=== PATIENT | female | born 1995 | race Hispanic/Latino ===

== ENCOUNTER 2020-09-23 21:11 | Emergency (ER) | payer OTHER ==
--- OUTSIDE RECORDS SUMMARY | 2020-09-23 21:16 | XMS REPORT | Continuity of Care Document ---
:1995 Author Organization [facility] t Address [address] [place] [address] Care Team Providers Name Role Phone Linda Attending Clinician Lab, Fam Pob I Attending Clinician Unavailable VISIT, BPF Attending Clinician Unavailable Swetha Sharif Attending Clinician Paul Van Attending Clinician Roxanne Gomez Attending Clinician Problems Condition Condition Condition Status Onset Resolution Last Treating Co mments Source Name Details Category Date Date Treatment Clinician Date G44.85 - Diagnosis Active 2019-052020-04-18 M emoria PRIMARY 2- 08:43:00 l STABBING G44.85 - 00:01: Herm elida HEADACHE PRIMARY 00 STABBING HEADACHE Active 04/04/2020 ASADD Aston N/A Diagnosis Active 2017-052018-03-13 Mem oria - 10:05:00 l N/A 00:00: Ismael 00 Active 03/10/2018 [facility] K80.1 Diagnosis Active 2017-052018-03-18 Mem oria CHOLEITHIA - 16:29:00 l SIS K80.1 00:00: [place] CHOLEITHIA 00 SIS Active 03/10/2018 [facility] R11.2 Diagnosis Active 2015-05-10 Mem oria -05 07:44:00 l R11.2 00:00: Ismael 00 Active 05/09/2015 [facility] [place] Hematemesi Problem 2014-052015-05-14 M emoria s 2-08 05:02:14 l (disorder) 00:00: Cristi n Hematemesi 00 s (disorder) 04/11/2015 Problem 05/14/2015 2x 1 episode [facility] Abnormal Problem 2018-10-04 Mem oria levels of 13:08:14 l other Abnormal Cristi n serum levels of enzymes other serum enzymes 10/04/2018 [facility] Gastritis, Problem 2018-10-04 M emoria unspecifie 13:08:14 l d, without Cristi n bleeding Gastritis, unspecifie d, without bleeding 10/04/2018 [facility] Gastro-eso Problem 2018-10-04 M emoria phageal 13:08:14 l reflux [place] disease Gastro-eso without phageal esophagiti reflux s disease without esophagiti s 10/04/2018 [facility] Essential Problem 2018-10-04 Me moria (primary) 13:08:14 l hypertensi Cristi n on Essential (primary) hypertensi on 10/04/2018 [facility] Unspecifie Problem 2018-10-04 M emoria d asthma, 13:08:14 l uncomplica Cristi n karla Unspecifie d asthma, uncomplica karla 10/04/2018 [facility] Anemia, Problem 2018-10-04 Thong olivier unspecifie 13:08:14 l d Anemia, Ismael unspecifie d 10/04/2018 [facility] Other long Problem 2018-10-04 M emoria term 13:08:14 l (current) Other Cristi n drug group home therapy (current) drug therapy 10/04/2018 [facility] Allergy Problem 2018-10-04 Thong olivier status to 13:08:14 l penicillin Allergy Her monzon status to penicillin 10/04/2018 [facility] Cardiac Problem 2015-05-14 Thong olivier asthma 05:02:14 l (disorder) Cardiac Her monzon asthma (disorder) Problem 05/14/2015 1no inhaler at this time [facility] Rectal Problem 2015-05-14 Memor ia hemorrhage 05:02:14 l (disorder) Rectal Herm elida hemorrhage (disorder) Problem 05/14/2015 [facility] Asthma Problem Active 2020-07-14 Memor ia (disorder) 02:13:22 l Asthma [place] (disorder) Active Problem 07/14/2020 no meds [facility] Eczema Problem Active 2020-07-14 Memor ia (disorder) 02:13:22 l Eczema Ismael (disorder) Active Problem 07/14/2020 Medical [facility], [facility] Gastroesop Problem Active 2020-07-14 M emoria hageal 02:13:22 l reflux Ismael disease Gastroesop (disorder) hageal reflux disease (disorder) Active Problem 07/14/2020 [facility], [facility] [place] Headache Problem Active 2020-07-14 Mem oria (finding) 02:13:22 l Headache Cristi n (finding) Active Problem 07/14/2020 Medical [facility], [facility] [place] Major Problem Active 2020-07-14 Memor ia depressive 02:13:22 l disorder Major [place] (disorder) depressive disorder (disorder) Active Problem 07/14/2020 Medical [facility] [place] Morbid Problem Active 2020-07-14 Memor ia obesity 02:13:22 l (disorder) Morbid Herm elida obesity (disorder) Active Problem 07/14/2020 [facility] [place] Chiari Problem Active 2020-07-14 Memor ia malformati 02:13:22 l on type I Chiari Yi nn (disorder) malformati on type I (disorder) Active Problem 07/14/2020 Medical [facility] Patient Problem Active 2020-07-14 Thong olivier encounter 02:13:22 l status Patient [place] (finding) encounter status (finding) Active Problem 07/14/2020 [facility] History of Past Illness Condition Condition Condition Status Onset Resolution Last Treating Co mments Source Name Details Category Date Date Treatment Clinician Date Calculus Problem 2017-052018-10-04 2018-10-04 Memoria of -17 13:08:14 13:08:14 l gallbladde Calculus 04:59: He rmann r with of 16 chronic gallbladde cholecysti r with tis chronic without cholecysti obstructio tis n without obstructio n 03/21/2018 10/04/2018 [facility] Allergies, Adverse Reactions, Alerts Allergy Allergy Status Severity Reaction(s) Onset Inactive Treating Comm ents Source Name Type Date Date Clinician penicill penicill Active Memori a in in l [place] Augmenti Augmenti Active Memori a n n l Ismael NKFA NKFA Active Memoria l [place] Latex Latex Active Memoria l Ismael amoxicil amoxicil Active Memori a tatiana Guevara Social History Social Habit Start Date Stop Date Quantity Comments Source Social History 2018-03-13 2018-03-13 [facility] 21:38:06 21:38:06 Medications Ordered Filled Start Stop Current Ordering Indication Dosage Frequency Signature Comments Components Source Medication Medication Date Date Medication? Clinician (SIG) Name Name Bromphenira 2020-0 Yes 5 mL, PO, M emoria mine 2-22 Q4H, PRN l Maleate 0.4 22:29: cough, X 8 [place] MG/ML / 00 day, # 240 Dextrometho mL, 0 rphan Refill(s), Hydrobromid Pharmacy: e 2 MG/ML / [facility] #[id number], Hydrochlori 149.86, de 6 MG/ML cm, Oral 06/15/20 Solution 16:09:00 CHEESEMAKER, Height, 97.756, kg, 06/15/20 16:09:00 CHEESEMAKER, Weight benzonatate Yes 200 mg = 1 Memoria 200 MG Oral 2-22 cap, PO, l Capsule 22:29: TID, X 7 Cristi n [Tessalon] 00 day, # 21 cap, 0 Refill(s), Pharmacy: [facility] #[id number], 149.86, cm, 06/15/20 16:09:00 CHEESEMAKER, Height, 97.756, kg, 06/15/20 16:09:00 CHEESEMAKER, Weight naproxen 0 Yes 500 mg = 1 Mem oria 500 mg oral 2-22 tab, PO, l tablet 22:29: BID, PRN [place] 00 Pain, # 30 tab, 0 Refill(s), Pharmacy: [facility] #[id number], 149.86, cm, 06/15/20 16:09:00 CHEESEMAKER, Height, 97.756, kg, 06/15/20 16:09:00 CHEESEMAKER, Weight promethazin 2019-05 Yes 12.5 mg = M emoria e 12.5 mg 1-10 1 tab, PO, l oral tablet 21:28: TID, PRN He rm 00 Nausea & Vomiting, # 90 tab, 2 Refill(s) Triamcinolo 2019-05 Yes 1 appl, Mem oria ne 1-10 TOP, BID, l Acetonide 1 21:26: PRN Apply H ermann MG/ML 00 to Topical affected Cream area(s), X 14 day, # 60 gm, 2 Refill(s) dexlansopra 2019-05 Yes 60 mg = 1 M emoria zole 60 mg 1-10 cap, PO, l oral 21:26: Daily, # Ismael delayed 00 30 cap, 5 release Refill(s) capsule promethazin 2019-05 No 12.5 mg = M emoria e 12.5 mg 1-10 1 tab, PO, l oral tablet 20:42: Q6H, PRN He rmann 00 Nausea & Vomiting, # 28 tab, 0 Refill(s) Phenergan 2017-05 No 12.5 mg, Thong olivier 05-17 Route: IM, l 16:08: ONCE, Dosing Weight 78, kg, Start date: 03/17/18 10:08:00 CHEESEMAKER, Stop date: 03/17/18 10:08:00 CHEESEMAKER Fentanyl 2017-05 No Notes: Memoria 05-17 (Same as: l 15:10: Sublimaze) Preservat judie free. Morphine 2017-05 No Notes: Memoria 05-17 (Same l 15:10: as:MORPhin e Sulfate) Flumazenil 2017-05 No Notes: Memor ia 05-17 (Same as: l 15:10: Romazicon) Ondansetron 2017-05 No Notes: Thong olivier -13 (Same as: l 15:10: Zofran) MEDICATION WASTE Product Size: 4 mg Product Wasted: ___ mg Naloxone 2017-05 No Notes: Memoria -13 (Same as: l 15:10: Narcan) Acetaminoph 2017-05 No Notes: Thong olivier en 325 MG / 05-17 (Same as: l Hydrocodone 14:55: Simon Yi nn Bitartrate 00 325/5) Do 5 MG Oral not exceed Tablet 4gm/day of acetaminop hen. Morphine 2017-05 No Notes: Memoria -13 (Same l 14:55: as:MORPhin e Sulfate) Phenergan 2017-05 No Notes: Memori a -13 (Same as: l 14:55: Phenergan) [place] 00 Zofran 2017-05 No Notes: Memoria -13 (Same as: l 14:55: Zofran) MEDICATION WASTE Product Size: 4 mg Product Wasted: ___ mg glycopyrrol 2017-05 No Route: IV, Memoria ate (ANES) 05-17 Drug form: l 14:55: INJ, ONCE, Stop date: 03/17/18 8:55:00 CHEESEMAKER neostigmine 2017-05 No Route: IV, Memoria (ANES) 05-17 Drug form: l 14:55: INJ, ONCE, Stop date: 03/17/18 8:55:00 CHEESEMAKER ceFAZolin 2017-05 No Route: IV, Me moria (ANES) - Drug form: l 14:53: INJ, ONCE, Stop date: 03/17/18 8:53:00 CHEESEMAKER midazolam 2017-05 No Route: IV, Me moria (ANES) - Drug form: l 14:48: SOLN, ONCE, Stop date: 03/17/18 8:48:00 CHEESEMAKER fentaNYL 2017-05 No Route: IV, Mem oria (ANES) 05-17 Drug form: l 14:48: INJ, ONCE, Stop date: 03/17/18 8:48:00 CHEESEMAKER lidocaine 2017-05 No Route: IV, Me moria (ANES) - Drug form: l 14:48: INJ, ONCE, Stop date: 03/17/18 8:48:00 CHEESEMAKER rocuronium 2017-05 No Route: IV, M emoria (ANES) - Drug form: l 14:48: INJ, ONCE, Stop date: 03/17/18 8:48:00 CHEESEMAKER propofol 2017-05 No Route: IV, Mem oria (ANES) 05-17 Drug form: l 14:48: INJ, ONCE, Stop date: 03/17/18 8:48:00 CHEESEMAKER ondansetron 2017-05 No Route: IV, Memoria (ANES) 05-17 Drug form: l 14:48: INJ, ONCE, [place] 00 Stop date: 03/17/18 8:48:00 CHEESEMAKER dexamethaso 2017-05 No Route: IV, Memoria ne (ANES) 05-17 Drug form: l 14:48: INJ, ONCE, Stop date: 03/17/18 8:48:00 CHEESEMAKER ketOROLAC 2017-05 No IV, ONCE Thong olivier (ANES) 05-17 l 14:48: [place] 00 Lactated 2017-05 No Route: IV, Mem oria Ringers 05-17 Total l Injection 13:58: Volume: Yi nn IV (ANES) 00 1,000, 1000 mL Start date: 03/17/18 7:58:00 CHEESEMAKER, Stop date: 03/17/18 8:58:00 CHEESEMAKER influenza 2017-05 No Notes: Memori a virus 05-13 (Same as: l vaccine, 21:44: Fluzone Cristi n inactivated 51 Quadrivale nt, Fluarix Quadrivale nt) For 3 years of age and older (0.5 mL IM) Shake well before use Misc No Bienvenido 213.33 mL, Memori a Medication 05-12 Devang Soln-IV, l 14:13: IV, Once, Ismael first dose 05/12/15 8:13:00 CHEESEMAKER, stop date 05/12/15 8:13:00 CHEESEMAKER propofol No Bienvenido 40 mg = 4 Mem oria 05-12 Devang mL, l 14:04: Emulsion, [place] 00 IV, Once, first dose 05/12/15 8:04:00 CHEESEMAKER, stop date 05/12/15 8:04:00 CHEESEMAKER propofol No Bienvenido 60 mg = 6 Mem oria -08 Devang mL, l 14:00: Emulsion, [place] 00 IV, Once, first dose 05/12/15 8:00:00 CHEESEMAKER, stop date 05/12/15 8:00:00 CHEESEMAKER propofol No Bienvenido 60 mg = 6 Mem oria - Devang mL, l 13:56: Emulsion, [place] 00 IV, Once, first dose 05/12/15 7:56:00 CHEESEMAKER, stop date 05/12/15 7:56:00 CHEESEMAKER propofol No Bienvenido 60 mg = 6 Mem oria -08 Devang mL, l 13:52: Emulsion, [place] 00 IV, Once, first dose 05/12/15 7:52:00 CHEESEMAKER, stop date 05/12/15 7:52:00 CHEESEMAKER propofol No Bienvenido 160 mg = Thong olivier - Devang 16 mL, l 13:48: Emulsion, Ismael 00 IV, Once, first dose 05/12/15 7:48:00 CHEESEMAKER, stop date 05/12/15 7:48:00 CHEESEMAKER lidocaine No Bienvenido 3 mL, Memori a - Devang Injection, l 13:47: IV, Once, [place] 00 first dose 05/12/15 7:47:00 CHEESEMAKER, stop date 05/12/15 7:47:00 CHEESEMAKER LR 1,000 mL No Jose Luis 1,000 mL, Memoria 08 Gomez IV, 30 l 13:11: mL/hr, [place] 00 start date 05/12/15 7:11:00 CHEESEMAKER Lidocaine No Jose Luis 0.2 mL, Me moria 2% 0.2 mL 05-12 Gomez Injection, l IV Start 13:11: Subcutaneo Her monzon [[facility]] 00 us, Once PRN for other (see comment), first dose 05/12/15 7:11:00 CHEESEMAKER Ortho Yes tabs, Memoria Tri-Cyclen 1-07 Oral, l 18:00: Daily, 0 Ismael 00 Refill(s), control Dexilant 60 Yes 60 mg = 1 M emoria mg oral 1-07 caps, l delayed 17:59: Oral, Ismael release 00 Daily, # capsule 30 caps, 0 Refill(s), GERD Vital Signs Vital Name Observation Time Observation Value Comments Source Systolic (mm Hg) 2020-07-11 21:32:00 Thong rial [place] Diastolic (mm Hg) 2020-07-11 21:32:00 Mem orial [place] Heart Rate 2020-07-11 21:32:00 [facility] Height 2020-07-11 21:32:00 149.86 cm Memorial [place] Weight 2020-07-11 21:32:00 [facility] Ismael BMI Calculated 2020-07-11 21:32:00 Memori al [place] Systolic (mm Hg) 2020-06-15 21:09:00 Thong rial [place] Diastolic (mm Hg) 2020-06-15 21:09:00 Mem orial [place] Heart Rate 2020-06-15 21:09:00 [facility] Ismeal Height 2020-06-15 21:09:00 149.86 cm Memorial [place] Weight 2020-06-15 21:09:00 Memorial [place] BMI Calculated 2020-06-15 21:09:00 Memori al [place] Systolic (mm Hg) 2020-06-13 21:30:00 Thong rial [place] Diastolic (mm Hg) 2020-06-13 21:30:00 Mem orial Ismael Height 2020-06-13 21:30:00 149.86 cm Memorial Ismael Weight 2020-06-13 21:30:00 Memorial [place] BMI Calculated 2020-06-13 21:30:00 Memori al [place] Systolic (mm Hg) 2020-03-14 20:40:00 Thong rial [place] Diastolic (mm Hg) 2020-03-14 20:40:00 Mem orial Ismael Heart Rate 2020-03-14 20:40:00 Memorial [place] Height 2020-03-14 20:40:00 149.86 cm Memorial Ismael Weight 2020-03-14 20:40:00 Memorial [place] BMI Calculated 2020-03-14 20:40:00 Memori al [place] Respitory Rate 2018-03-17 16:45:00 Memori al [place] Systolic (mm Hg) 2018-03-17 16:45:00 Thong rial [place] Diastolic (mm Hg) 2018-03-17 16:45:00 Mem orial [place] Respitory Rate 2018-03-17 16:15:00 Memori al [place] Systolic (mm Hg) 2018-03-17 16:15:00 Thong rial Ismael Diastolic (mm Hg) 2018-03-17 16:15:00 Mem orial [place] Respitory Rate 2018-03-17 16:00:00 Memori al [place] Systolic (mm Hg) 2018-03-17 16:00:00 Thong rial [place] Diastolic (mm Hg) 2018-03-17 16:00:00 Mem orial Ismael Temperature Oral (F) 2018-03-17 12:00:00 98.5 F Memorial Ismael Heart Rate 2018-03-13 21:33:00 [facility] Ismael BMI Calculated 2018-03-13 21:26:00 Memori al Ismael Weight 2018-03-13 21:26:00 Memorial [place] Height 2018-03-13 21:26:00 149.86 cm Memorial [place] Systolic (mm Hg) 2015-05-12 14:45:00 Thong rial [place] Respitory Rate 2015-05-12 14:45:00 Memori al [place] Systolic (mm Hg) 2015-05-12 14:20:00 Thong rial [place] Respitory Rate 2015-05-12 14:20:00 Memori al [place] Heart Rate 2015-05-12 14:20:00 [facility] Ismael Heart Rate 2015-05-12 14:10:00 [facility] Ismael Respitory Rate 2015-05-12 14:10:00 Memori al Ismael Systolic (mm Hg) 2015-05-12 14:10:00 Thong rial Ismael Temperature Oral (F) 2015-05-12 14:00:00 36.6 [facility] Ismael Heart Rate 2015-05-12 14:00:00 Memorial [place] Height 2015-05-12 13:33:00 149.86 cm [facility] Ismael Weight 2015-05-12 13:33:00 [facility] Ismael Temperature Oral (F) 2015-05-12 13:33:00 37 [facility] Ismael Height 2015-05-11 17:57:00 149 cm Memorial [place] Weight 2015-05-11 17:57:00 [facility] Ismael Procedures Procedure Date / Time Performing Source Performed Clinician COLONOSCOPY FLEXIBLE; DIAGNOSTIC; 2015-05-12 Jose Luis Gomez [facility] Ismael INCL. COLLECTION OF SPECIMENS 13:49:00 [id number] (Other)<sup>1</sup> ESOPHAGOGASTRODUODENOSCOPY; 2015-05-12 Jose Luis Gomez Thong rial Ismael FLEXIBLE DIAGNOSTIC [id number] 13:49:00 (Other)<sup>2</sup> Esophagogastroduodenoscopy 2014-05-09 Memor ial Ismael 06:00:00 section<sup>1</sup> Mem orial [place] Encounters Start End Encounter Admission Attending Care Care Encounter Source Date/Time Date/Time Type Type Clinicians Facility Department ID 2020-07-11 2020-07-11 Outpatient Leidy-Will [facility] [id number] 15:30:00 23:59:59 Josefa wall 04 2020-07-08 2020-07-08 Laboratory Lab, [facility] [id number] 12:58:17 13:18:17 Only Fam Pob I Health [id number] [place] [id number] Professio [id number] nal [address] 2020-06-26 2020-06-26 Outpatient Leidy-Will [facility] [id number] 16:00:00 23:59:59 Josefa wall 2020-06-24 2020-06-24 Laboratory Lab, [facility] [id number] 17:36:34 17:56:34 Only Fam Pob I Health [id number] [place] [id number] Professio [id number] nal [address] 2020-06-15 2020-06-15 Outpatient VISIT, [facility] [id number] 15:00:00 23:59:59 NURSE BPF 03 2020-06-13 2020-06-14 Outpatient [facility] [id number] 13:54:38 13:54:38 00 2020-06-13 2020-06-13 Outpatient Leidy-Will [facility] [id number] 15:00:00 23:59:59 Josefa wall 2020-04-18 2020-04-18 Outpatient Kole, MHOIP MHOIP [id number] 08:33:00 23:59:00 January Posada 2020-03-14 2020-03-14 Outpatient Leidy-Will [facility] [id number] 14:30:00 23:59:59 [facility] Josefa 00 2018-03-17 2018-03-17 Outpatient Bermudez terrance [facility] [id number] 05:18:00 12:05:00 Supa Bartlett 2016-09-27 2016-09-27 Outpatient AWILDA Gomez MH29 [id number] 14:34:00 23:59:00 Jose Luis H 00 2015-05-12 2015-05-12 Outpatient Mason Cervantes66 Memoria 06:35:49 08:45:00 [place] Ismael l Surgical [facility] [place] [facility] [place] 2015-05-10 2015-05-10 Outpatient TIAN GomezSL [facility] [id number] 07:35:00 23:59:00 Jose Luis H 00 Results Test Description Test Time Test Comments Results Result Comments Source LIPIDS 2020-07-11 183 [facility] Yi nn 22:24:00 LIPIDS 2020-07-11 58 Memorial Yi nn 22:24:00 LIPIDS 2020-07-11 143 Memorial Yi nn 22:24:00 LIPIDS 2020-07-11 101 Memorial Yi nn 22:24:00 LIPIDS 2020-07-11 3.2 Memorial Yi nn 22:24:00 LIPIDS 2020-07-11 125 Memorial Yi nn 22:24:00 SPECIAL CHEMISTRY 2020-07-11 5.4 Memoria l Ismael 22:24:00 CHEM PANEL 2020-07-11 80 Memorial Yi nn 22:24:00 CHEM PANEL 2020-07-11 14 Memorial Yi nn 22:24:00 CHEM PANEL 2020-07-11 0.70 Memorial Yi nn 22:24:00 CHEM PANEL 2020-07-11 120 Memorial Yi nn 22:24:00 CHEM PANEL 2020-07-11 140 Memorial Yi nn 22:24:00 CHEM PANEL 2020-07-11 139 Memorial Yi nn 22:24:00 CHEM PANEL 2020-07-11 4.0 Memorial Yi nn 22:24:00 CHEM PANEL 2020-07-11 105 Memorial Yi nn 22:24:00 CHEM PANEL 2020-07-11 27 Memorial Yi nn 22:24:00 CHEM PANEL 2020-07-11 9.4 Memorial Yi nn 22:24:00 CHEM PANEL 2020-07-11 7.2 Memorial Yi nn 22:24:00 CHEM PANEL 2020-07-11 4.3 Memorial Yi nn 22:24:00 CHEM PANEL 2020-07-11 2.9 Memorial Yi nn 22:24:00 CHEM PANEL 2020-07-11 1.5 Memorial Yi nn 22:24:00 CHEM PANEL 2020-07-11 0.3 Memorial Yi nn 22:24:00 CHEM PANEL 2020-07-11 102 Memorial Yi nn 22:24:00 CHEM PANEL 2020-07-11 19 Memorial Yi nn 22:24:00 CHEM PANEL 2020-07-11 21 Memorial Yi nn 22:24:00 HEMATOLOGY 2020-07-11 5.8 Memorial Yi nn 22:24:00 HEMATOLOGY 2020-07-11 4.42 Memorial Yi nn 22:24:00 HEMATOLOGY 2020-07-11 12.4 Memorial Yi nn 22:24:00 HEMATOLOGY 2020-07-11 38.0 Memorial Yi nn 22:24:00 HEMATOLOGY 2020-07-11 86.0 Memorial Yi nn 22:24:00 HEMATOLOGY 2020-07-11 22:24:00 Test Item Value Reference Range Interpretation Comme nts MCH (test code = MCH) 28.1 pg 27.0-33.0 Memorial Z[id number] 22:24:0032.6[facility]ann[facility]MATOLOGY 2020-07-11 22:24:0012.9[facility] UliyrfxYEEZNLMRCG9081-28-02 22:24:62256Hsdnrhxz MhotqmyMLMYHQCIDM7603-35-91 22:24:0010.0[facility] MmmnmhzNSOEVBKXHS5290-92-38 22:24:919304Mosldfjd RufiaojHPDAEUMNCZ2978-82-55 22:24:027785Icnkvlwp Ismael EWVDVRBWYB2626-97-66 22:24:18244Blefwggt AqnehsxIVOLQFAELT5595-83-52 22:24:0052 Memorial LudodboITANZBARSR3522-23-67 22:24:0029[facility]ann[facility]MATOLOGY 2020-07-11 22:24:0057.2[facility] EcpxiehXBGRDAHTBK1044-82-32 22:24:0030.1[facility] JpwdyxmVIPDWEPXYW7233-64-75 22:24:0011.3[facility] JlzodiyELRRWEMCBZ3963-75-77 22:24:000.9[facility] FswyaenNHKUQOHJOY1776-03-86 22:24:000.5[facility] [place] BKFKBYANMN2956-88-61 21:14:41873.80[facility] HermannCHEM ZQNXV4485-80-63 21:33:00 95[facility] KpczihtPBTSUNNVAAPIM8141-94-56 21:33:00Negative *NA*(03/13/18 3:33 PM) Memorial TlsrvxxTXMDGXOQAH5258-09-20 21:33:000.0[facility] HermannHEMATOLOGY 2018-03-13 21:33:001.9[facility] UzzmyorGSSTJIULXI9237-60-39 21:33:004.4[facility] IhpmoqyWHKWISVUJE6493-30-65 21:33:000.5[facility] VofzvqwOVLBMYKLTS5573-82-50 21:33:000.0[facility] DedgworCHQJYPAHIN8524-36-32 21:33:000.5[facility] [place] XFGCHCLGLJ9171-50-33 21:33:006.7[facility] AtdnzvfNLQAGKFFDK3211-01-95 21:33:00 27.9[facility] AoxqficZGUUGFWKDO9938-21-08 21:33:0064.4[facility]annHEMATOLOGY 2018-03-13 21:33:000.5[facility] RetfcuzWINNYQFNZZ4727-64-95 21:33:004.10[facility] IitesulYOZRTUBKCT0155-89-90 21:33:0034.0[facility] GovijdiEJWTZVXIMJ3405-93-20 21:33:0011.0[facility] OlfryfcKCQOZMRQLA9896-84-43 21:33:0017.3[facility] Ismael IZPZUSMSUC3623-14-16 21:33:43455Wlarmupp RvitpqrBDUXFIPGVN6729-60-93 21:33:007.7 Memorial DofhimaTIWBOFHZSG6759-02-31 21:33:0082.8[facility]ann[facility]MATOLOGY 2018-03-13 21:33:0032.3[facility] WqnfpfjGVESZUKBQR7273-41-62 21:33:00 Test Item Value Reference Range Interpretation Comments MCH (test code = MCH) 26.7 pg 27.0-31.0 [facility] 21:33:006.9[facility] 2015-05-12 13:37:00Negative, Control Present (05/12/2015 07:37:00)[facility]
--- NOTE | 2020-09-23 22:52 | EDPHYS ---
Physician Documentation [facility] Name: Maggie Bowles Age: 24 yrs Sex: Female : 1995 Arrival Date: 09/23/2020 Time: 21:12 Bed 13 Private MD: ED Physician Ralph Arthur HPI: 09/23 21:40 This 24 yrs old Female presents to ER via Ambulatory with complaints of Sore cp Throat, Neck Swelling, Body Pain. 21:40 The patient presents with sore throat. cp 21:40 The patient describes throat pain as constant, scratchy. cp 21:40 Onset: The symptoms/episode began/occurred 3 day(s) ago. Severity of symptoms: in the emergency department the symptoms are unchanged, despite home interventions. Associated signs and symptoms: Pertinent positives: body aches, Pertinent negatives cough, diarrhea, dysphagia, fever, vomiting. 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 - Social history:: Smoking status: Patient denies any tobacco usage or history of. ROS: 21:45 Constitutional: Positive for body aches, Negative for chills, fever, poor PO intake. cp 21:45 Eyes: Negative for injury, pain, redness, and discharge. cp 21:45 ENT: Positive for ear pain, sore throat, Negative for drainage from ear(s), sinus pain, difficulty swallowing, difficulty handling secretions. 21:45 Cardiovascular: Negative for chest pain. 21:45 Respiratory: Negative for cough, shortness of breath, wheezing. 21:45 Abdomen/GI: Negative for abdominal pain, nausea, vomiting, and diarrhea. 21:45 Neuro: Negative for headache. 21:45 All other systems are negative. Exam: 21:50 Constitutional: The patient appears in no acute distress, alert, awake, non-toxic, well cp developed, well nourished. 21:50 Head/Face: Normocephalic, atraumatic. cp 21:50 Eyes: Periorbital structures: appear normal, Conjunctiva: normal, no exudate, no injection, Sclera: no appreciated abnormality, Lids and lashes: appear normal, bilaterally. 21:50 ENT: External ear(s): are unremarkable, Ear canal(s): are normal, clear, TM's: bulging, is not appreciated, bilaterally, dullness, bilaterally, erythema, is not appreciated, bilaterally, Nose: is normal, Mouth: Lips: moist, Oral mucosa: moist, Posterior pharynx: Airway: no evidence of obstruction, patent, Tonsils: bilaterally enlarged, with erythema, Uvula: midline, erythema, that is moderate, exudate, is not appreciated. 21:50 Neck: ROM/movement: is normal, is supple, no meningismus, no nuchal rigidity, Lymph nodes: lymphadenopathy is appreciated, anterior cervical nodes. 21:50 Chest/axilla: Inspection: normal. 21:50 Cardiovascular: Rate: tachycardic. 21:50 Respiratory: the patient does not display signs of respiratory distress, Respirations: normal, no use of accessory muscles, no retractions, labored breathing, is not present. Vital Signs: 21:20 BP 137 / 93; Pulse 118; Resp 20; Temp 98.4; Pulse Ox 99% ; Weight 97.98 kg; Height 4 vg1 ft. 11 in. (149.86 cm); Pain 6/10; 23:00 BP 128 / 88; Pulse 98; Resp 18; Pulse Ox 98% on R/A; wh 21:20 Body Mass Index 43.63 (97.98 kg, 149.86 cm) vg1 MDM: 21:57 Patient medically screened. cp 22:00 Differential diagnosis: epiglottitis, group A strep tonsillitis, peritonsillar abscess cp retropharyngeal abcess tonsillitis, uvulitis. 22:51 Data reviewed: vital signs, nurses notes, lab test result(s). cp 22:51 Counseling: I had a detailed discussion with the patient and/or guardian regarding: the cp historical points, exam findings, and any diagnostic results supporting the discharge/admit diagnosis, lab results, to return to the emergency department if symptoms worsen or persist or if there are any questions or concerns that arise at home. 09/23 21:34 Order name: Strep vg1 09/23 21:35 Order name: Group A Streptococcus Rapid Sc EDMS 09/23 22:00 Order name: Throat Culture EDMS Administered Medications: 23:05 Drug: Viscous Lidocaine Liquid (4 %) 5 ml Route: Mucous Membrane; wh 23:16 Follow up: Response: No adverse reaction; Pain is decreased Disposition: 09/24 07:21 Co-signature as Attending Physician, Ralph Arthur MD. [email or web address] Disposition: 09/23/20 22:52 Discharged to Home. Impression: Acute tonsillitis. - Condition is Stable. - Discharge Instructions: Tonsillitis. - Prescriptions for lidocaine HCl 2 % Mucous Membrane solution - take 5 milliliter by ORAL route every 4-6 hours As needed; 1 bottle. Biaxin 500 mg Oral Tablet - take 1 tablet by ORAL route every 12 hours for 10 days; 20 tablet. - Medication Reconciliation Form, Thank You Letter, Antibiotic Education, Prescription Opioid Use, Work release form, Family Work Release form. - Follow up: Private Physician; When: 1 - 2 days; Reason: Worsening of condition. - Problem is new. - Symptoms have improved. Signatures: Dispatcher [employer] EDPA Chicho Harrison PA PA cp Habalo, Winsy, RN RN Dior Brooks RN RN vg1 Ralph Arthur MD MD [email or web address] Corrections: (The following items were deleted from the chart) 09/23 23:19 22:52 09/23/2020 22:52 Discharged to Home. Impression: Acute tonsillitis. Condition is Stable. Forms are Medication Reconciliation Form, Thank You Letter, Antibiotic Education, Prescription Opioid Use. Follow up: Private Physician; When: 1 - 2 days; Reason: Worsening of condition. Problem is new. Symptoms have improved. cp
--- NOTE | 2020-09-23 22:52 | ER ---
Nurse's Notes [facility] Name: Maggie Bowles Age: 24 yrs Sex: Female : 1995 Arrival Date: 09/23/2020 Time: 21:12 Bed 13 Private MD: Diagnosis: Acute tonsillitis Presentation: 09/23 21:20 Chief complaint: Patient states: C/o body aches, sore throat, and right ear pain for vg1 about 2-3 days. Coronavirus screen: Client denies travel out of the [place] in the last 14 days. Ebola Screen: Patient negative for fever greater than or equal to 101.5 degrees Fahrenheit, and additional compatible Ebola Virus Disease symptoms. Initial Sepsis Screen: Does the patient meet any 2 criteria? No. Patient's initial sepsis screen is negative. Does the patient have a suspected source of infection? No. Patient's initial sepsis screen is negative. Risk Assessment: Do you want to hurt yourself or someone else? Patient reports no desire to harm self or others. Onset of symptoms was September 20, 2020. 21:20 Method Of Arrival: Ambulatory vg1 21:20 Acuity: VENKATA 3 vg1 Triage Assessment: 21:25 General: Appears in no apparent distress. comfortable, Behavior is calm, cooperative. vg1 Pain: Complains of pain in generalized body aches and throat. EENT: Throat is reddened. 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 - Social history:: Smoking status: Patient denies any tobacco usage or history of. Screenin:00 Abuse screen: Denies threats or abuse. Denies injuries from another. Nutritional wh screening: No deficits noted. Tuberculosis screening: No symptoms or risk factors identified. Fall Risk None identified. Assessment: 21:34 Reassessment: Pt being treated in triage. vg1 22:00 General: Appears in no apparent distress. Behavior is calm, cooperative, appropriate wh for age. Pain: Complains of pain in sore throat. Neuro: Level of Consciousness is awake, alert, obeys commands, Oriented to person, place, time, situation, Appropriate for age. Cardiovascular: Heart tones S1 S2. Respiratory: Airway is patent Respiratory effort is even, unlabored, Respiratory pattern is regular, symmetrical, Breath sounds are clear bilaterally. GI: Abdomen is flat, non-distended. : No signs and/or symptoms were reported regarding the genitourinary system. EENT: Throat is pink. Derm: Skin is intact, is healthy with good turgor, Skin is pink, warm \T\ dry. normal. Musculoskeletal: Circulation, motion, and sensation intact. 23:00 Reassessment: Patient appears in no apparent distress at this time. No changes from previously documented assessment. Patient and/or family updated on plan of care and expected duration. Pain level reassessed. Patient is alert, oriented x 3, equal unlabored respirations, skin warm/dry/pink. Vital Signs: 21:20 BP 137 / 93; Pulse 118; Resp 20; Temp 98.4; Pulse Ox 99% ; Weight 97.98 kg; Height 4 vg1 ft. 11 in. (149.86 cm); Pain 6/10; 23:00 BP 128 / 88; Pulse 98; Resp 18; Pulse Ox 98% on R/A; wh 21:20 Body Mass Index 43.63 (97.98 kg, 149.86 cm) vg1 ED Course: 21:12 Patient arrived in ED. cf2 21:23 Triage completed. vg1 21:25 Arm band placed on. vg1 21:31 Chicho Harrison PA is PHCP. cp 21:31 Ralph Arthur MD is Attending Physician. cp 21:36 Strep swab sent to lab. vg1 22:00 Patient has correct armband on for positive identification. Bed in low position. Call light in reach. Side rails up X 1. Pulse ox on. NIBP on. 22:52 Mazin Miranda, ROLF is Primary Nurse. 23:19 No provider procedures requiring assistance completed. Patient did not have IV access during this emergency room visit. Administered Medications: 23:05 Drug: Viscous Lidocaine Liquid (4 %) 5 ml Route: Mucous Membrane; 23:16 Follow up: Response: No adverse reaction; Pain is decreased Outcome: 22:52 Discharge ordered by . cp 23:19 Discharged to home ambulatory. 23:19 Condition: stable 23:19 Discharge instructions given to patient, Instructed on discharge instructions, follow up and referral plans. medication usage, POC Demonstrated understanding of instructions, follow-up care, medications, POC Prescriptions given X 2. 23:19 Patient left the ED. Signatures: Chicho Harrison PA PA cp Habalo, Winsy, RN RN David Márquez 2 Dior Brooks RN RN vg1
[2020-09-23] MEDS ORDERED: LIDOCAINE VISCOUS 2% SOLN 15 ML UDC ONE (23:31)
[2020-09-23 23:39] VITALS: TEMP 98.4
[2020-09-23 23:40] VITALS: BP 128/88; O2SAT 98
== END 2020-09-23 23:19 | disposition home or self-care (01) ==
LOC: ER 21:11
DX: J03.90 Acute tonsillitis, unspecified (principal)
CPT/HCPCS: 87070; 87081; 99284

== ENCOUNTER 2020-12-06 04:31 | Emergency (ER) | payer OTHER ==
--- OUTSIDE RECORDS SUMMARY | 2020-12-06 04:34 | XMS REPORT | Continuity of Care Document ---
:1995 Author Organization [facility] t Address [address] [place] [address] Care Team Providers Name Role Phone Linda [...] Mem oria - 10:05:00 l N/A 00:00: [place] 00 Active 03/10/2018 [facility] K80.1 Diagnosis Active 2017-052018-03-18 Mem oria CHOLEITHIA - 16:29:00 l SIS K80.1 00:00: [place] CHOLEITHIA 00 SIS Active 03/10/2018 [facility] R11.2 Diagnosis Active 2015-05-10 Mem oria -05 07:44:00 l R11.2 00:00: [place] 00 Active 05/09/2015 [facility] [place] Hematemesi Problem 2014-052015-05-14 M emoria s 2-08 05:02:14 l (disorder) 00:00: Cristi n Hematemesi 00 s (disorder) 04/11/2015 Problem 05/14/2015 2x 1 episode [facility] Abnormal Problem 2018-10-04 Mem oria levels of 13:08:14 l other Abnormal Cristi n serum levels of enzymes other serum enzymes 10/04/2018 [facility] Gastritis, Problem 2018-10-04 M emoria unspecifie 13:08:14 l d, without Cristi n bleeding Gastritis, unspecifie d, without bleeding 10/04/2018 [facility] Gastro-eso Problem 2018-10-04 M emoria phageal 13:08:14 l reflux Alma disease Gastro-eso without phageal esophagiti reflux s disease without esophagiti s 10/04/2018 [facility] Essential Problem 2018-10-04 Me moria (primary) 13:08:14 l hypertensi Cristi n on Essential (primary) hypertensi on 10/04/2018 [facility] Unspecifie Problem 2018-10-04 M emoria d asthma, 13:08:14 l uncomplica Cristi n karla Unspecifie d asthma, uncomplica karla 10/04/2018 [facility] Anemia, Problem 2018-10-04 Thong olivier unspecifie 13:08:14 l d Anemia, [place] unspecifie d 10/04/2018 [facility] Other long Problem 2018-10-04 M emoria term 13:08:14 l (current) Other Cristi n drug senior care therapy (current) drug therapy 10/04/2018 [facility] Allergy Problem 2018-10-04 Thong olivier status to 13:08:14 l penicillin Allergy Her monzon status to penicillin 10/04/2018 [facility] Cardiac Problem 2015-05-14 Thong olivier asthma 05:02:14 l (disorder) Cardiac Her monzon asthma (disorder) Problem 05/14/2015 1no inhaler at this time [facility] Rectal Problem 2015-05-14 Memor ia hemorrhage 05:02:14 l (disorder) Rectal Herm elida hemorrhage (disorder) Problem 05/14/2015 [facility] Asthma Problem Active 2020-07-14 Memor ia (disorder) 02:13:22 l Asthma Ismael (disorder) Active Problem 07/14/2020 no [facility]s [facility] Eczema Problem Active 2020-07-14 Memor ia (disorder) 02:13:22 l Eczema [place] (disorder) Active Problem 07/14/2020 [facility], [facility] Gastroesop Problem Active 2020-07-14 M emoria hageal 02:13:22 l reflux Ismael disease Gastroesop (disorder) hageal reflux disease (disorder) Active Problem 07/14/2020 [facility] Headache Problem Active 2020-07-14 Mem oria (finding) 02:13:22 l Headache Cristi n (finding) Active Problem 07/14/2020 [facility], [facility] Major Problem Active 2020-07-14 Memor ia depressive 02:13:22 l disorder Major [place] (disorder) depressive disorder (disorder) Active Problem 07/14/2020 [facility] Morbid Problem Active 2020-07-14 Memor ia obesity 02:13:22 l (disorder) Morbid Herm elida obesity (disorder) Active Problem 07/14/2020 [facility] [place] Chiari Problem Active 2020-07-14 Memor ia malformati 02:13:22 l on type I Chiari Yi nn (disorder) malformati on type I (disorder) Active Problem 07/14/2020 [facility] Patient Problem Active 2020-07-14 Thong olivier encounter 02:13:22 l status Patient Ismael (finding) encounter status (finding) Active Problem 07/14/2020 [facility] History of Past Illness Condition Condition Condition Status Onset Resolution Last Treating Co mments Source Name Details Category Date Date Treatment Clinician Date Calculus Problem 2017-052018-10-04 2018-10-04 Memoria of -17 13:08:14 13:08:14 l gallbladde Calculus 04:59: He rmann r with of 16 chronic gallbladde cholecysti r with tis chronic without cholecysti obstructio tis n without obstructio n 03/21/2018 10/04/2018 [facility] Allergies, Adverse Reactions, Alerts Allergy Allergy Status Severity Reaction(s) Onset Inactive Treating Comm ents Source Name Type Date Date Clinician penicill penicill Active Memori a in in l Ismael Augmenti Augmenti Active Memori a n n l [place] Latex Latex Active Memoria l Ismael amoxicil amoxicil Active Memori a tatiana tatiana l Ismael Social History Social Habit Start Date Stop Date Quantity Comments Source Social History 2018-03-13 2018-03-13 [facility] 21:38:06 21:38:06 Medications Ordered Filled Start Stop Current Ordering Indication Dosage Frequency Signature Comments Components Source Medication Medication Date Date Medication? Clinician (SIG) Name Name Heather 0 Yes 5 mL, PO, M emoria mine 2-22 Q4H, PRN l Maleate 0.4 22:29: cough, X 8 [place] MG/ML / 00 day, # 240 Dextrometho mL, 0 rphan Refill(s), Hydrobromid Pharmacy: e 2 MG/ML / [id number], Hydrochlori 149.86, de 6 MG/ML cm, Oral 06/15/20 Solution 16:09:00 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, Height, 97.756, kg, 06/15/20 16:09:00 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, Weight benzonatate Yes 200 mg = 1 Memoria 200 MG Oral 2-22 cap, PO, l Capsule 22:29: TID, X 7 Cristi n [Tessalon] 00 day, # 21 cap, 0 Refill(s), Pharmacy: [facility] #[id number], 149.86, cm, 06/15/20 16:09:00 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, Height, 97.756, kg, 06/15/20 16:09:00 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, Weight naproxen 0 Yes 500 mg = 1 Mem oria 500 mg oral 2-22 tab, PO, l tablet 22:29: BID, PRN Al[place] 00 Pain, # 30 tab, 0 Refill(s), Pharmacy: [facility] #[id number], 149.86, cm, 06/15/20 16:09:00 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, Height, 97.756, kg, 06/15/20 16:09:00 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, Weight promethazin 2019- Yes 12.5 mg = M emoria e 12.5 mg 1-10 1 tab, PO, l oral tablet 21:28: TID, PRN He rmann 00 Nausea & Vomiting, # 90 tab, 2 Refill(s) Triamcinolo 2019-05 Yes 1 appl, Mem oria ne 1-10 TOP, BID, l Acetonide 1 21:26: PRN Apply H ermann MG/ML 00 to Topical affected Cream area(s), X 14 day, # 60 gm, 2 Refill(s) dexlansopra 2019-05 Yes 60 mg = 1 M emoria zole 60 mg 1-10 cap, PO, l oral 21:26: Daily, # Alma delayed 00 30 cap, 5 release Refill(s) capsule promethazin 2019-05 No 12.5 mg = M emoria e 12.5 mg 1-10 1 tab, PO, l oral tablet 20:42: Q6H, PRN He rm 00 Nausea & Vomiting, # 28 tab, 0 Refill(s) Phenergan 2017-05 No 12.5 mg, Thong olivier 05-17 Route: IM, l 16:08: ONCE, Dosing Weight 78, kg, Start date: 03/17/18 10:08:00 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, Stop date: 03/17/18 10:08:00 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 Fentanyl 2017-05 No Notes: Memoria - (Same as: l 15:10: Sublimaze) Preservat judie free. Morphine 2017-05 No Notes: Memoria - (Same l 15:10: as:MORPhin e Sulfate) Flumazenil 2017-05 No Notes: Memor ia - (Same as: l 15:10: Romazicon) Ondansetron 2017-05 No Notes: Thong olivier - (Same as: l 15:10: Zofran) MEDICATION WASTE Product Size: 4 mg Product Wasted: ___ mg Naloxone 2017-05 No Notes: Memoria -13 (Same as: l 15:10: Narcan) Acetaminoph 2017-05 No Notes: Thong olivier en 325 MG / 05-17 (Same as: l Hydrocodone 14:55: [place] Yi nn Bitartrate 00 325/5) Do 5 MG Oral not exceed Tablet 4gm/day of acetaminop hen. Morphine 2017-05 No Notes: Memoria -13 (Same l 14:55: as:MORPhin e Sulfate) Phenergan 2017-05 No Notes: Memori a -13 (Same as: l 14:55: Phenergan) Ismael 00 Zofran 2017-05 No Notes: Memoria -13 (Same as: l 14:55: Zofran) MEDICATION WASTE Product Size: 4 mg Product Wasted: ___ mg glycopyrrol 2017-05 No Route: IV, Memoria ate (ANES) 05-17 Drug form: l 14:55: INJ, ONCE, Stop date: 03/17/18 8:55:00 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 neostigmine 2017-05 No Route: IV, Memoria (ANES) 05-17 Drug form: l 14:55: INJ, ONCE, Stop date: 03/17/18 8:55:00 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 ceFAZolin 2017-05 No Route: IV, Me moria (ANES) - Drug form: l 14:53: INJ, ONCE, Stop date: 03/17/18 8:53:00 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 midazolam 2017-05 No Route: IV, Me moria (ANES) - Drug form: l 14:48: SOLN, Alma 00 ONCE, Stop date: 03/17/18 8:48:00 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 fentaNYL 2017-05 No Route: IV, Mem oria (ANES) 05-17 Drug form: l 14:48: INJ, ONCE, Stop date: 03/17/18 8:48:00 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 lidocaine 2017-05 No Route: IV, Me moria (ANES) -13 Drug form: l 14:48: INJ, ONCE, Stop date: 03/17/18 8:48:00 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 rocuronium 2017-05 No Route: IV, M emoria (ANES) - Drug form: l 14:48: INJ, ONCE, Stop date: 03/17/18 8:48:00 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 propofol 2017-05 No Route: IV, Mem oria (ANES) -13 Drug form: l 14:48: INJ, ONCE, Stop date: 03/17/18 8:48:00 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 ondansetron 2017-05 No Route: IV, Memoria (ANES) 05-17 Drug form: l 14:48: INJ, ONCE, Ismael Stop date: 03/17/18 8:48:00 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 dexamethaso 2017-05 No Route: IV, Memoria ne (ANES) 05-17 Drug form: l 14:48: INJ, ONCE, Alma Stop date: 03/17/18 8:48:00 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 ketOROLAC 2017-05 No IV, ONCE Thong olivier (ANES) 05-17 l 14:48: Ismael 00 Lactated 2017-05 No Route: IV, Mem oria Ringers 05-17 Total l Injection 13:58: Volume: Yi nn IV (ANES) 00 1,000, 1000 mL Start date: 03/17/18 7:58:00 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, Stop date: 03/17/18 8:58:00 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 influenza 2017-05 No Notes: Memori a virus 05-13 (Same as: l vaccine, 21:44: Fluzone Cristi n inactivated 51 Quadrivale nt, Fluarix Quadrivale nt) For 3 years of age and older (0.5 mL IM) Shake [facility] Bienvenido 213.33 mL, Memori a Medication 05-12 Devang Soln-IV, l 14:13: IV, Once, Ismael 00 first dose 05/12/15 8:13:00 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, stop date 05/12/15 8:13:00 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 propofol No Bienvenido 40 mg = 4 Mem oria - Devang mL, l 14:04: Emulsion, Ismael 00 IV, Once, first dose 05/12/15 8:04:00 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, stop date 05/12/15 8:04:00 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 propofol No Bienvenido 60 mg = 6 Mem oria -08 Devang mL, l 14:00: Emulsion, Alma 00 IV, Once, first dose 05/12/15 8:00:00 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, stop date 05/12/15 8:00:00 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 propofol No Bienvenido 60 mg = 6 Mem oria -08 Devang mL, l 13:56: Emulsion, Alma 00 IV, Once, first dose 05/12/15 7:56:00 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, stop date 05/12/15 7:56:00 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 propofol No Bienvenido 60 mg = 6 Mem oria 1-08 Devang mL, l 13:52: Emulsion, Alma 00 IV, Once, first dose 05/12/15 7:52:00 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, stop date 05/12/15 7:52:00 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 propofol No Bienvenido 160 mg = Thong olivier - Devang 16 mL, l 13:48: Emulsion, Ismael 00 IV, Once, first dose 05/12/15 7:48:00 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, stop date 05/12/15 7:48:00 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 lidocaine No Bienvenido 3 mL, Memori a 05-12 Devang Injection, l 13:47: IV, Once, [place] 00 first dose 05/12/15 7:47:00 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, stop date 05/12/15 7:47:00 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 LR 1,000 mL No Jose Luis 1,000 mL, Memoria 08 Gomez IV, 30 l 13:11: mL/hr, Ismael 00 start date 05/12/15 7:11:00 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 Lidocaine No Jose Luis 0.2 mL, Me moria 2% 0.2 mL 05-12 Gomez Injection, l IV Start 13:11: Subcutaneo Her monzon [[facility]] 00 us, Once PRN for other (see comment), first dose 05/12/15 7:11:00 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 Ortho Yes tabs, Memoria Tri-Cyclen 1-07 Oral, l 18:00: Daily, 0 Ismael 00 Refill(s), control Dexilant 60 Yes 60 mg = 1 M emoria mg oral 07 caps, l delayed 17:59: Oral, Alma release 00 Daily, # capsule 30 caps, 0 Refill(s), GERD Vital Signs Vital Name Observation Time Observation Value Comments Source Systolic (mm Hg) 2020-07-11 21:32:00 Thong rial Ismael Diastolic (mm Hg) 2020-07-11 21:32:00 [facility] orial [place] Heart Rate 2020-07-11 21:32:00 [facility] Height 2020-07-11 21:32:00 149.86 cm [facility] Weight 2020-07-11 21:32:00 [facility] [place]mael BMI Calculated 2020-07-11 21:32:00 Memori al Ismael Systolic (mm Hg) 2020-06-15 21:09:00 Thong rial [place] Diastolic (mm Hg) 2020-06-15 21:09:00 Mem orial [place] Heart Rate 2020-06-15 21:09:00 [facility] Ismael Height 2020-06-15 21:09:00 149.86 cm Memorial [place] Weight 2020-06-15 21:09:00 [facility] [place]el BMI Calculated 2020-06-15 21:09:00 Memori al Ismael Systolic (mm Hg) 2020-06-13 21:30:00 Thong rial [place] Diastolic (mm Hg) 2020-06-13 21:30:00 Mem orial [place] Height 2020-06-13 21:30:00 149.86 cm Memorial [place] Weight 2020-06-13 21:30:00 Memorial [place] BMI Calculated 2020-06-13 21:30:00 Memori al [place] Systolic (mm Hg) 2020-03-14 20:40:00 Thong rial Ismael Diastolic (mm Hg) 2020-03-14 20:40:00 Mem orial [place] Heart Rate 2020-03-14 20:40:00 [facility] Ismael Height 2020-03-14 20:40:00 149.86 cm Memorial [place] Weight 2020-03-14 20:40:00 Memorial Ismael BMI Calculated 2020-03-14 20:40:00 Memori al Ismael Respitory Rate 2018-03-17 16:45:00 Memori al Ismael Systolic (mm Hg) 2018-03-17 16:45:00 Thong rial Ismael Diastolic (mm Hg) 2018-03-17 16:45:00 Mem orial [place] Respitory Rate 2018-03-17 16:15:00 Memori al Ismael Systolic (mm Hg) 2018-03-17 16:15:00 Thong rial [place] Diastolic (mm Hg) 2018-03-17 16:15:00 Mem orial [place] Respitory Rate 2018-03-17 16:00:00 Memori al [place] Systolic (mm Hg) 2018-03-17 16:00:00 Thong rial [place] Diastolic (mm Hg) 2018-03-17 16:00:00 Mem orial [place] Temperature Oral (F) 2018-03-17 12:00:00 98.5 F Memorial [place] Heart Rate 2018-03-13 21:33:00 [facility] [place] BMI Calculated 2018-03-13 21:26:00 Memori al Ismael Weight 2018-03-13 21:26:00 [facility] [place]mael Height 2018-03-13 21:26:00 149.86 cm Memorial [place] Systolic (mm Hg) 2015-05-12 14:45:00 Thong rial [place] Respitory Rate 2015-05-12 14:45:00 Memori al Ismael Systolic (mm Hg) 2015-05-12 14:20:00 Thong rial Ismael Respitory Rate 2015-05-12 14:20:00 Memori al Ismael Heart Rate 2015-05-12 14:20:00 Memorial [place] Heart Rate 2015-05-12 14:10:00 [facility] [place]mael Respitory Rate 2015-05-12 14:10:00 Memori al Ismael Systolic (mm Hg) 2015-05-12 14:10:00 Thong rial [place] Temperature Oral (F) 2015-05-12 14:00:00 36.6 [facility] [place] Heart Rate 2015-05-12 14:00:00 [facility] [place]el Height 2015-05-12 13:33:00 149.86 cm [facility] [place] Weight 2015-05-12 13:33:00 [facility] [place] Temperature Oral (F) 2015-05-12 13:33:00 37 [facility] [place] Height 2015-05-11 17:57:00 149 cm [facility] [place]el Weight 2015-05-11 17:57:00 [facility] [place]mael Procedures Procedure Date / Time Performing Source Performed Clinician COLONOSCOPY FLEXIBLE; DIAGNOSTIC; 2015-05-12 Jose Luis Gomez [place] INCL. COLLECTION OF SPECIMENS 13:49:00 [id number] (Other)<sup>1</sup> ESOPHAGOGASTRODUODENOSCOPY; 2015-05-12 Jose Luis Gomez Memo rial [place] FLEXIBLE DIAGNOSTIC [id number] 13:49:00 (Other)<sup>2</sup> Esophagogastroduodenoscopy 2014-05-09 Memor ial [place] 06:00:00 section<sup>1</sup> Mem orial Ismael Encounters Start End Encounter Admission Attending Care Care Encounter Source Date/Time Date/Time Type Type Clinicians Facility Department ID 2020-07-11 2020-07-11 Outpatient Leidy-Will [facility] [id number] 15:30:00 23:59:59 Josefa wall 04 2020-07-08 2020-07-08 Laboratory Lab, [facility] [id number] 12:58:17 13:18:17 Only Fam Pob I Health [id number] [place] [id number] nal [address] 2020-06-26 2020-06-26 Outpatient Leidy-Will [facility] [id number] 16:00:00 23:59:59 Janes wallika 2020-06-24 2020-06-24 Laboratory Lab, [facility] [id number] 17:36:34 17:56:34 Only Fam Pob I Health [id number] [place] [id number] [facility] [id number] nal [address] 2020-06-15 2020-06-15 Outpatient VISIT, [facility] [id number] 15:00:00 23:59:59 NURSE BPF 03 2020-06-13 2020-06-14 Outpatient [facility] [id number] 13:54:38 13:54:38 00 2020-06-13 2020-06-13 Outpatient Leidy-Will [facility] [id number] 15:00:00 23:59:59 Josefa wall 2020-04-18 2020-04-18 Outpatient Kole, MHOIP MHOIP [id number] 08:33:00 23:59:00 January Posada 2020-03-14 2020-03-14 Outpatient Leidy-Will [facility] [id number] 14:30:00 23:59:59 Josefa wall 2018-03-17 2018-03-17 Outpatient Aidan carlos [facility] [id number] 05:18:00 12:05:00 Supa Bartlett 2016-09-27 2016-09-27 Outpatient AWILDA Gomez 29 [id number] 14:34:00 23:59:00 Jose Luis H 00 2015-05-12 2015-05-12 Outpatient Mason Cuevas [id number] Memdiana 06:35:49 08:45:00 Ismael Ismael l Surgical Surgical [facility] [place] [place] 2015-05-10 2015-05-10 Outpatient TIAN GomezSL S [id number] 07:35:00 23:59:00 Jose Luis H 00 [...] code = MCH) 28.1 pg 27.0-33.0 [facility] OpdkzcpLBAVNKXYJX5178-45-26 22:24:0032.6[facility] 2020-07-11 22:24:0012.9[facility] TmpkaohIUZTPXFEXU9266-74-45 22:24:20535Zhblduii JifdztnHQSUSIQWHF9383-95-67 22:24:0010.0[facility] NdilyfcFRRNOPTYCU1739-54-29 22:24:672848Jjuwgqmt AlrcynpQQNDZZPUNW1071-11-28 22:24:740252Fexblbhv Ismael SDCEGJEBIB5484-35-04 22:24:16360Qdhbofae TmeqvbiYBMZXTREAF5424-94-44 22:24:0052 Memorial OvjwauyBLQMZIWQCZ3476-08-47 22:24:0029[facility] 2020-07-11 22:24:0057.2[facility] JeujagyVIRZOWOATQ8140-24-26 22:24:0030.1[facility] FusabzkZDHRRAZFZO3899-07-86 22:24:0011.3[facility] HsanylkJQKRYTCMTE4246-30-87 22:24:000.9[facility] MxequalXMYIWRTGQT1737-92-68 22:24:000.5[facility] [place] DACZNBVAOW4925-36-74 21:14:16390.80[facility] THYROID ULTR[facility]OUND 2020-02-11 14:31:43CLINICAL INDICATION: E04.9 Nontoxic goiter, unspecifiedTECHNIQUE: Real time and doppler imaging of the thyroid is performed using a high frequency probe on the [employer] Vision Pre[employer] .Comparison S tudy: noneFINDINGS:Right lobe: 4.0 x 1.6 x 1.4 cm.Left lobe: 4.0 x 1.6 x 1.7 cm.Isthmus: 6.1 mm.Comments: Echotexture is homogeneous without evidence of a focal nodule.IMPRESSION:Normal thyroid ultrasound.CHEM [id number] 21:33:00 95[facility] ApokkxhPQVKOLCAHHNWX1258-98-41 21:33:00Negative *NA*(03/13/18 3:33 PM) Memorial OlvxviaSXQDZYTOBA4683-44-54 21:33:000.0[facility]ann[facility]MATOLOGY 2018-03-13 21:33:001.9[facility] HxtqsilEKCXIVRQFP4828-31-78 21:33:004.4[facility] YatbkjlBKUNQRJBQS3792-45-49 21:33:000.5[facility] RussvekRTKEVGBEZA6788-10-61 21:33:000.0[facility] EcxqguhUTGCEFLKPN0175-43-93 21:33:000.5[facility] Ismael SLTPGZTOXT4321-36-62 21:33:006.7[facility] SlssuauYWEVMPVGNU7563-88-34 21:33:00 27.9[facility] EgtyyyqJVHUTULBCQ5799-37-16 21:33:0064.4[facility]ann[facility]MATOLOGY 2018-03-13 21:33:000.5[facility] MfkzgkiTYGOFUPZKK4426-16-77 21:33:004.10[facility] XaobfciNKEYGLGURH1543-77-34 21:33:0034.0[facility] SzecappFZTMGMDQQJ4850-16-17 21:33:0011.0[facility] EnftyqwQUOWVDEAJL6095-20-65 21:33:0017.3[facility] [place] GMJXMHSFJZ2845-91-63 21:33:25597Jyescrmg KodzwisSVIZTIHDKG7418-01-15 21:33:007.7 [facility] PpumuthCLFVQHKWWH2662-60-21 21:33:0082.8[facility]ann[facility]MATOLOGY 2018-03-13 21:33:0032.3[facility] LfwewtpJWPGDWYPZN9834-87-18 21:33:00 Test Item Value Reference Range Interpretation Comments MCH (test code = MCH) 26.7 pg 27.0-31.0 [facility] CampusYwinbpgGKWVZTWLIB5771-59-92 21:33:006.9[facility]ann[facility] 2015-05-12 13:37:00Negative, Control Present (05/12/2015 07:37:00)[facility]
[2020-12-06] MEDS ORDERED: IBUPROFEN 400 MG TAB ONE (05:11)
[2020-12-06] MEDS ORDERED: ONDANSETRON 4 MG (ODT) TAB ONE (05:11)
[2020-12-06 05:47] LABS: Absolute Lymphocytes (CBC) 0.4 K/uL (0.7-4.9); Basophils % 0.2 % (0-1.3); Hematocrit 38.2 % (36.0-45.0); Lymphocytes % 2.8 % (15.3-44.8); MPV 7.3 fL (7.6-11.3); RBC Red Blood Cell Count 4.37 M/uL (3.86-4.86)
[2020-12-06 06:08] LABS: Albumin 3.8 g/dL (3.4-5.0); Bilirubin Direct 0.1 mg/dL (0-0.2); Bilirubin Total 0.5 mg/dL (0.2-1.0); Potassium 3.6 mmol/L (3.5-5.1); Protein, Total 8.1 g/dL (6.4-8.2)
[2020-12-06 06:32] LABS: Blood Morphology Comment NOT SEEN (NOT SEEN); Platelet Estimate ADEQ
[2020-12-06 06:46] LABS: Urine Blood Negative (Negative); Urine Glucose Negative (Negative); Urine Protein Negative (Negative); Urine Specific Gravity 1.015 (1.005-1.030); Urine pH 6.5 (5.0-7.0)
--- NOTE | 2020-12-06 07:55 | ER ---
Nurse's Notes [facility] Name: Maggie Bowles Age: 25 yrs Sex: Female : 1995 Arrival Date: 12/06/2020 Time: 04:34 Bed 18 Private MD: Diagnosis: Fever, unspecified;Vomiting Presentation: 12/06 04:51 Chief complaint: Patient states: Reports she started having nausea vomiting fever and em body aches that started yesterday morning. Coronavirus screen: At this time, the client does not indicate any symptoms associated with coronavirus-19. Ebola Screen: No symptoms or risks identified at this time. Initial Sepsis Screen: Does the patient meet any 2 criteria? HR > 90 bpm. No. Patient's initial sepsis screen is negative. Does the patient have a suspected source of infection? Yes:. Risk Assessment: Do you want to hurt yourself or someone else? Patient reports no desire to harm self or others. Onset of symptoms was December 06, 2020. 04:51 Method Of Arrival: Ambulatory em 04:51 Acuity: VENKATA 4 em Triage Assessment: 04:53 General: Appears in no apparent distress. Behavior is appropriate for age. Pain: em Complains of pain in body aches. 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 - Social history:: Smoking status: unknown. Screenin:51 Abuse screen: Denies threats or abuse. Nutritional screening: No deficits noted. em Tuberculosis screening: No symptoms or risk factors identified. Fall Risk None identified. Assessment: 06:10 General: Appears. General: Appears in no apparent distress. Pain: Denies pain. Neuro: ak2 No deficits noted. Cardiovascular: No deficits noted. GI:. GI: Reports nausea. 06:31 GI: Reports nausea, vomiting. ak2 07:40 Reassessment: No changes from previously documented assessment. Patient and/or family ll1 updated on plan of care and expected duration. Pain level reassessed. Patient is alert, oriented x 3, equal unlabored respirations, skin warm/dry/pink. 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 Patient states feeling better. Patient states symptoms have improved. GI: Abdomen is round Bowel sounds present X 4 quads. Vital Signs: 04:51 BP 140 / 75; Pulse 118; Resp 20; Temp 103; Pulse Ox 97% ; Weight 98.88 kg; Height 5 ft. em (152.40 cm); 06:12 BP 132 / 70; Pulse 84; Resp 18; Temp 99; Pulse Ox 100% on R/A; ak2 07:38 BP 108 / 61; Pulse 105; Resp 18; Temp 98.2; Pulse Ox 96% on R/A; ll1 08:11 Pulse 90; ll1 04:51 Body Mass Index 42.57 (98.88 kg, 152.40 cm) em ED Course: 04:34 Patient arrived in ED. wm 04:51 Arm band placed on right wrist. em 04:53 Triage completed. em 04:53 Patient has correct armband on for positive identification. Call light in reach. em 05:08 Ralph Arthur MD is Attending Physician. 7 07:07 Chest Single View XRAY In Process Unspecified. EDMS 07:10 Inserted saline lock: 20 gauge in right forearm, using aseptic technique. started prior ll1 to my shift starting. 07:23 Ozzie Acosta PA is PHCP. jr8 07:31 Darion Miller RN is Primary Nurse. ll1 08:10 IV discontinued, intact, bleeding controlled, No redness/swelling at site. Pressure ll1 dressing applied. 08:11 No provider procedures requiring assistance completed. ll1 Administered Medications: 04:51 Drug: Ondansetron 4 mg Route: PO; em 07:32 Follow up: Response: No adverse reaction ll1 04:51 Drug: Motrin (ibuprofen) 800 mg Route: PO; em 07:32 Follow up: Response: No adverse reaction ll1 05:43 Drug: NS 0.9% 1000 ml Route: IV; Rate: 1000 ml; Site: left antecubital; ak2 08:09 Follow up: Response: No adverse reaction; IV Status: Completed infusion; IV Intake: ll1 1000ml Intake: 08:09 IV: 1000ml; Total: 1000ml. ll1 Outcome: 07:54 Discharge ordered by . jr8 08:11 Discharged to home ambulatory. ll1 08:11 Condition: stable 08:11 Discharge instructions given to patient, Instructed on discharge instructions, follow up and referral plans. medication usage, Demonstrated understanding of instructions, follow-up care, medications, Prescriptions given X 1. 08:11 Patient left the ED. ll1 Signatures: Dispatcher [employer] EDGabo Lind, RN Ozzie Thomas PA PA jr8 Lewis, Lynsay, RN RN ll1 Ralhp Arthur MD MD [facility] Jesse Gabriel wv2 Rona Barron Corrections: (The following items were deleted from the chart) 06:32 06:12 BP 132 / 70; Pulse 84bpm; Resp 18bpm; Pulse Ox 100% RA; ak2 ak2
--- NOTE | 2020-12-06 07:55 | EDPHYS ---
Physician Documentation [facility] Name: Maggie Bowles Age: 25 yrs Sex: Female : 1995 Arrival Date: 12/06/2020 Time: 04:34 Bed 18 Private MD: ED Physician Ralph Arthur HPI: 12/06 05:15 This 25 yrs old Female presents to ER via Ambulatory with complaints of Fever, mh7 Nausea/Vomiting, BODY ACHES. 05:15 The patient reports fever, that was measured at 102 degrees Fahrenheit. mh7 05:15 Onset: The symptoms/episode began/occurred yesterday. Modifying factors: there are no mh7 obvious modifying factors. Associated signs and symptoms: Pertinent positives: myalgias, nausea, vomiting, X1, Pertinent negatives: abdominal pain, altered mental status, arthralgias, backache, chest pain, chills, cough, diarrhea, pulling at ears, earache, headache, hemoptysis, night sweats, runny nose, sinus congestion, sinus drainage, skin rash, shortness of breath, sore throat, swelling. Severity of symptoms: At their worst the symptoms were moderate last night, in the emergency department the symptoms have improved moderately. [employer]: 08:11 LMP N/A - , upt negative ll1 Historical: - Allergies: 04:53 Augmentin; em 04:53 PENICILLINS; em - Home Meds: 04:53 control [Active]; em - Immunization history:: Adult Immunizations up to date. - Social history:: Smoking status: unknown. ROS: 05:15 Eyes: Negative for injury, pain, redness, and discharge, ENT: Negative for injury, mh7 pain, and discharge, Neck: Negative for injury, pain, and swelling, Cardiovascular: Negative for chest pain, palpitations, and edema, Respiratory: Negative for shortness of breath, cough, wheezing, and pleuritic chest pain, Back: Negative for injury and pain, : Negative for injury, bleeding, discharge, and swelling, MS/Extremity: Negative for injury and deformity, Skin: Negative for injury, rash, and discoloration, Neuro: Negative for headache, weakness, numbness, tingling, and seizure, Psych: Negative for depression, anxiety, suicide ideation, homicidal ideation, and hallucinations, Allergy/Immunology: Negative for hives, rash, and allergies, Endocrine: Negative for neck swelling, polydipsia, polyuria, polyphagia, and marked weight changes, Hematologic/Lymphatic: Negative for swollen nodes, abnormal bleeding, and unusual bruising. Exam: 05:15 Constitutional: This is a well developed, well nourished patient who is awake, alert, mh7 and in no acute distress. Head/Face: Normocephalic, atraumatic. Eyes: Pupils equal round and reactive to light, extra-ocular motions intact. Lids and lashes normal. Conjunctiva and sclera are non-icteric and not injected. Cornea within normal limits. Periorbital areas with no swelling, redness, or edema. ENT: Nares patent. No nasal discharge, no septal abnormalities noted. Tympanic membranes are normal and external auditory canals are clear. Oropharynx with no redness, swelling, or masses, exudates, or evidence of obstruction, uvula midline. Mucous membranes moist. Neck: Trachea midline, no thyromegaly or masses palpated, and no cervical lymphadenopathy. Supple, full range of motion without nuchal rigidity, or vertebral point tenderness. No Meningismus. Chest/axilla: Normal chest wall appearance and motion. Nontender with no deformity. No lesions are appreciated. 05:15 Respiratory: Lungs have equal breath sounds bilaterally, clear to auscultation and percussion. No rales, rhonchi or wheezes noted. No increased work of breathing, no retractions or nasal flaring. Abdomen/GI: Soft, non-tender, with normal bowel sounds. No distension or tympany. No guarding or rebound. No evidence of tenderness throughout. Back: No spinal tenderness. No costovertebral tenderness. Full range of motion. Skin: Warm, dry with normal turgor. Normal color with no rashes, no lesions, and no evidence of cellulitis. MS/ Extremity: Pulses equal, no cyanosis. Neurovascular intact. Full, normal range of motion. Neuro: Awake and alert, GCS 15, oriented to person, place, time, and situation. Cranial nerves II-XII grossly intact. Motor strength 5/5 in all extremities. Sensory grossly intact. Cerebellar exam normal. Normal gait. Psych: Awake, alert, with orientation to person, place and time. Behavior, mood, and affect are within normal limits. 05:15 Cardiovascular: Rate: tachycardic, Rhythm: regular, Pulses: no pulse deficits are appreciated, Heart sounds: normal, normal S1and S2, Edema: is not appreciated, JVD: is not appreciated. Vital Signs: 04:51 BP 140 / 75; Pulse 118; Resp 20; Temp 103; Pulse Ox 97% ; Weight 98.88 kg; Height 5 ft. em (152.40 cm); 06:12 BP 132 / 70; Pulse 84; Resp 18; Temp 99; Pulse Ox 100% on R/A; ak2 07:38 BP 108 / 61; Pulse 105; Resp 18; Temp 98.2; Pulse Ox 96% on R/A; ll1 08:11 Pulse 90; ll1 04:51 Body Mass Index 42.57 (98.88 kg, 152.40 cm) em MDM: 07:23 Patient medically screened. jr8 07:48 Data reviewed: vital signs, nurses notes, lab test result(s), radiologic studies, plain jr8 films. Data interpreted: Pulse oximetry: on room air is 96 %. Interpretation: normal. Counseling: I had a detailed discussion with the patient and/or guardian regarding: the historical points, exam findings, and any diagnostic results supporting the discharge/admit diagnosis, lab results, radiology results, the need for outpatient follow up, a family practitioner, to return to the emergency department if symptoms worsen or persist or if there are any questions or concerns that arise at home. 07:52 ED course: Reviewed patient's labs and imaging. Mild increase in white cell count with jr8 bandemia but no other acute findings. Covid was negative along with strep. Patient able to tolerate p.o. fluids at this time. Fever now abated. Discussed with patient that this could be general viral enteritis versus Covid still. Recommended treating symptomatically and was sent home on nausea medicine. To stay home the next few days and if still feeling bad would get retested. If she were to feel worse or other symptoms were to arise to come back for further evaluation. Patient good with this plan.. 12/06 05:24 Order name: Influenza Screen (A ; Complete Time: 06:27 EDMS 12/06 05:29 Order name: Rapid Strep; Complete Time: 07:23 mh7 12/06 05:30 Order name: CBC with Diff; Complete Time: 06:36 mh7 12/06 05:30 Order name: Basic Metabolic Panel; Complete Time: 06:19 [facility] 12/06 05:30 Order name: LFT's; Complete Time: 06:19 [facility] 12/06 05:49 Order name: Manual Differential; Complete Time: 06:36 EDMS 12/06 06:27 Order name: SARS-COV-2 RT PCR; Complete Time: 06:27 EDMS 12/06 06:38 Order name: Lactate; Complete Time: 07:23 [facility] 12/06 06:38 Order name: Procalcitonin; Complete Time: 07:47 [facility] 12/06 06:38 Order name: Blood Culture Adult (2) [facility] 12/06 06:46 Order name: Urine Dipstick-Ancillary; Complete Time: 06:54 EDMS 12/06 06:48 Order name: Urine --Ancillary (enter results) 12/06 05:28 Order name: Urine Dipstick-Ancillary (obtain specimen); Complete Time: 07:31 [facility] 12/06 05:28 Order name: Urine Test (obtain specimen); Complete Time: 07:32 [facility] 12/06 05:29 Order name: PO challenge; Complete Time: 07:32 [facility] 12/06 06:37 Order name: Chest Single View XRAY [facility] 12/06 07:09 Order name: Throat Culture EDMS Administered Medications: 04:51 Drug: Ondansetron 4 mg Route: PO; em 07:32 Follow up: Response: No adverse reaction ll1 04:51 Drug: Motrin (ibuprofen) 800 mg Route: PO; em 07:32 Follow up: Response: No adverse reaction ll1 05:43 Drug: NS 0.9% 1000 ml Route: IV; Rate: 1000 ml; Site: left antecubital; ak2 08:09 Follow up: Response: No adverse reaction; IV Status: Completed infusion; IV Intake: ll1 1000ml Disposition Summary: 12/06/20 07:54 Discharge Ordered Location: Home jr8 Problem: new jr8 Symptoms: have improved jr8 Condition: Stable jr8 Diagnosis - Fever, unspecified jr8 - Vomiting jr8 Followup: jr8 - With: Private Physician - When: 5 - 6 days - Reason: Recheck today's complaints, Continuance of care, Re-evaluation by your physician Discharge Instructions: - Discharge Summary Sheet jr8 - Fever, Adult jr8 - Vomiting, Adult jr8 - COVID-19 jr8 Forms: - Work release form jr8 - Medication Reconciliation Form jr8 - Thank You Letter jr8 - Antibiotic Education jr8 - Prescription Opioid Use jr8 Prescriptions: - promethazine 25 mg Oral Tablet - take 1 tablet by ORAL route every 6 hours As needed; 20 tablet; Refills: 0, jr8 Product Selection Permitted Addendum: 12/08/2020 02:56 Co-signature as Attending Physician, Ralph Arthur MD. [facility] Signatures: Dispatcher [employer] EDMS Gabo Tolbert, RN RN em Ozzie Acosta PA PA jr8 Ralph Arthur MD MD [facility] Jesse Gabriel [facility] Darion Miller RN ll1 Corrections: (The following items were deleted from the chart) 12/06 05:29 05:23 Influenza Screen (A \T\ B)+[id number] ordered. EDNJ EDNJ
[2020-12-06 08:29] VITALS: BP 108/61; TEMP 98.2; O2SAT 96
[2020-12-06 09:02] LABS: Urine Specific Gravity/Preg 1.015 (1.005-1.030)
--- NOTE | 2020-12-06 09:15 | RAD REPORT ---
EXAM DESCRIPTION: RAD - Chest Single View - 12/06/2020 7:07 am CLINICAL HISTORY: FEVER Chest pain. COMPARISON: No comparisons FINDINGS: Portable technique limits examination quality. The lungs are grossly clear. The heart is normal in size. No displaced fractures. IMPRESSION: No acute intrathoracic process suspected.
== END 2020-12-06 08:11 | disposition home or self-care (01) ==
LOC: ER 04:31
DX: R11.10 Vomiting, unspecified (principal); Z20.822 Contact with and (suspected) exposure to COVID-19; Z88.0 Allergy status to penicillin; Z88.1 Allergy status to other antibiotic agents
CPT/HCPCS: 96361; 87040 ×2; 87070; 85025; 80048; 36415; 81025; 80076; 87081; 83605; 81003; 84145; 87804 ×2; 71045; 96360; 99284; U0003

== ENCOUNTER 2020-12-07 19:14 | Emergency (ER) | payer OTHER ==
--- OUTSIDE RECORDS SUMMARY | 2020-12-07 19:19 | XMS REPORT | Continuity of Care Document ---
:1995 Author Organization [facility] t Address [address] [place] [address] Care Team Providers Name Role Phone Linda Attending Clinician Lab, Fam Pob I Attending Clinician Unavailable VISIT, BPF Attending Clinician Unavailable Swetha Sharif Attending Clinician Paul Van Attending Clinician Roxnane Gomez Attending Clinician Problems Condition Condition Condition Status Onset Resolution Last Treating Co mments Source Name Details Category Date Date Treatment Clinician Date G44.85 - Diagnosis Active 2019-052020-04-18 M emoria PRIMARY 2- 08:43:00 l STABBING G44.85 - 00:01: Herm elida HEADACHE PRIMARY 00 STABBING HEADACHE Active 04/04/2020 ASADD Aston N/A Diagnosis Active 2017-052018-03-13 Mem oria - 10:05:00 l N/A 00:00: [place] 00 Active 03/10/2018 [facility] K80.1 Diagnosis Active 2017-052018-03-18 Mem oria CHOLEITHIA - 16:29:00 l SIS K80.1 00:00: [place] CHOLEITHIA 00 SIS Active 03/10/2018 [facility] R11.2 Diagnosis Active 2015-05-10 Mem oria -05 07:44:00 l R11.2 00:00: [place] 00 Active 05/09/2015 [facility] Hematemesi Problem 2014-052015-05-14 M emoria s 2-08 05:02:14 l (disorder) 00:00: Cristi n Hematemesi 00 s (disorder) 04/11/2015 Problem 05/14/2015 2x 1 episode [facility] Abnormal Problem 2018-10-04 Mem oria levels of 13:08:14 l other Abnormal Cristi n serum levels of enzymes other serum enzymes 10/04/2018 [facility] Gastritis, Problem 2018-10-04 M emoria unspecifie 13:08:14 l d, without Cristi n bleeding Gastritis, unspecifie d, without bleeding 10/04/2018 [facility] Gastro-eso Problem 2018-10-04 M emoria phageal 13:08:14 l reflux [place] disease Gastro-eso without phageal esophagiti reflux s disease without esophagiti s 10/04/2018 [facility] Essential Problem 2018-10-04 Me moria (primary) 13:08:14 l hypertensi Cristi n on Essential (primary) hypertensi on 10/04/2018 [facility] Unspecifie Problem 2018-10-04 M emoria d asthma, 13:08:14 l uncomplica Cristi n karla Unspecifie d asthma, uncomplica karla 10/04/2018 [facility] Anemia, Problem 2018-10-04 Thong olivier unspecifie 13:08:14 l d Anemia, [place] unspecifie d 10/04/2018 [facility] Other long Problem 2018-10-04 M emoria term 13:08:14 l (current) Other Cristi n drug alf therapy (current) drug therapy 10/04/2018 [facility] Allergy Problem 2018-10-04 Thong olivier status to 13:08:14 l penicillin Allergy Her monzon status to penicillin 10/04/2018 [facility] Cardiac Problem 2015-05-14 Thong olivier asthma 05:02:14 l (disorder) Cardiac Her monzon asthma (disorder) Problem 05/14/2015 1no inhaler at this time [facility] Rectal Problem 2015-05-14 Memor ia hemorrhage 05:02:14 l (disorder) Rectal Herm elida hemorrhage (disorder) Problem 05/14/2015 [facility] Asthma Problem Active 2020-07-14 Memor ia (disorder) 02:13:22 l Asthma Ismael (disorder) Active Problem 07/14/2020 no meds [facility] Eczema Problem Active 2020-07-14 Memor ia (disorder) 02:13:22 l Eczema [place] (disorder) Active Problem 07/14/2020 Medical [facility], [facility] Gastroesop Problem Active 2020-07-14 M emoria hageal 02:13:22 l reflux Ismael disease Gastroesop (disorder) hageal reflux disease (disorder) Active Problem 07/14/2020 Medical Group,[facility] ical Specialty [facility], [facility] Headache Problem Active 2020-07-14 Mem oria (finding) 02:13:22 l Headache Cristi n (finding) Active Problem 07/14/2020 Medical [facility], [facility] [place] Major Problem Active 2020-07-14 Memor ia depressive 02:13:22 l disorder Major [place] (disorder) depressive disorder (disorder) Active Problem 07/14/2020 Medical [facility] Morbid Problem Active 2020-07-14 Memor ia obesity 02:13:22 l (disorder) Morbid Herm elida obesity (disorder) Active Problem 07/14/2020 Medical [facility] [place] Chiari Problem Active 2020-07-14 Memor ia malformati 02:13:22 l on type I Chiari Yi nn (disorder) malformati on type I (disorder) Active Problem 07/14/2020 Medical [facility] Patient Problem Active 2020-07-14 Thong olivier encounter 02:13:22 l status Patient Ismael (finding) encounter status (finding) Active Problem 07/14/2020 [facility] History of Past Illness Condition Condition Condition Status Onset Resolution Last Treating Co mments Source Name Details Category Date Date Treatment Clinician Date Calculus Problem 2017-052018-10-04 2018-10-04 Memoria of -17 13:08:14 13:08:14 l gallbladde Calculus 04:59: He rmann r with of 16 chronic gallbladde cholecysti r with tis chronic without cholecysti obstructio tis n without obstructio n 03/21/2018 10/04/2018 [facility] Allergies, Adverse Reactions, Alerts Allergy Allergy Status Severity Reaction(s) Onset Inactive Treating Comm ents Source Name Type Date Date Clinician penicill penicill Active Memori a in in l Ismael Augmenti Augmenti Active Memori a n n l [place] Latex Latex Active Memoria l Ismael amoxicil amoxicil Active Memori a tatiana tatiana l Ismael Social History Social Habit Start Date Stop Date Quantity Comments Source Social History 2018-03-13 2018-03-[address] [facility] [place] [place] 21:38:06 21:38:06 Medications Ordered Filled Start Stop Current Ordering Indication Dosage Frequency Signature Comments Components Source Medication Medication Date Date Medication? Clinician (SIG) Name Name Heather 0 Yes 5 mL, PO, M emoria mine 2-22 Q4H, PRN l Maleate 0.4 22:29: cough, X 8 [place] MG/ML / 00 day, # 240 Dextrometho mL, 0 rphan Refill(s), Hydrobromid Pharmacy: e 2 MG/ML / [id number], Hydrochlori 149.86, de 6 MG/ML cm, Oral 06/15/20 Solution 16:09:00 PRINCIPAL STRATEGIST, Height, 97.756, kg, 06/15/20 16:09:00 PRINCIPAL STRATEGIST, Weight benzonatate Yes 200 mg = 1 Memoria 200 MG Oral 2-22 cap, PO, l Capsule 22:29: TID, X 7 Cristi n [Tessalon] 00 day, # 21 cap, 0 Refill(s), Pharmacy: [facility] #[id number], 149.86, cm, 06/15/20 16:09:00 PRINCIPAL STRATEGIST, Height, 97.756, kg, 06/15/20 16:09:00 PRINCIPAL STRATEGIST, Weight naproxen 0 Yes 500 mg = 1 Mem oria 500 mg oral 2-22 tab, PO, l tablet 22:29: BID, PRN [place] 00 Pain, # 30 tab, 0 Refill(s), Pharmacy: [facility] #[id number], 149.86, cm, 06/15/20 16:09:00 PRINCIPAL STRATEGIST, Height, 97.756, kg, 06/15/20 16:09:00 PRINCIPAL STRATEGIST, Weight promethazin 2019- Yes 12.5 mg = [...] cap, PO, l oral 21:26: Daily, # [place] delayed 00 30 cap, 5 release Refill(s) capsule promethazin 2019-05 No 12.5 mg = M emoria e 12.5 mg 1-10 1 tab, PO, l oral tablet 20:42: Q6H, PRN He rm 00 Nausea & Vomiting, # 28 tab, 0 Refill(s) Phenergan 2017-05 No 12.5 mg, Thong olivier 05-17 Route: IM, l 16:08: ONCE, Dosing Weight 78, kg, Start date: 03/17/18 10:08:00 PRINCIPAL STRATEGIST, Stop date: 03/17/18 10:08:00 PRINCIPAL STRATEGIST Fentanyl 2017-05 No Notes: Memoria - (Same [...] / 05-17 (Same as: l Hydrocodone 14:55: Norman Yi nn Bitartrate 00 325/5) Do 5 [...] 14:55: INJ, ONCE, Stop date: 03/17/18 8:55:00 PRINCIPAL STRATEGIST neostigmine 2017-05 No Route: IV, Memoria (ANES) 05-17 Drug form: l 14:55: INJ, ONCE, Stop date: 03/17/18 8:55:00 PRINCIPAL STRATEGIST ceFAZolin 2017-05 No Route: IV, Me moria (ANES) - Drug form: l 14:53: INJ, ONCE, Stop date: 03/17/18 8:53:00 PRINCIPAL STRATEGIST midazolam 2017-05 No Route: IV, Me moria (ANES) - Drug form: l 14:48: SOLN, [place] 00 ONCE, Stop date: 03/17/18 8:48:00 PRINCIPAL STRATEGIST fentaNYL 2017-05 No Route: IV, Mem oria (ANES) 05-17 Drug form: l 14:48: INJ, ONCE, Stop date: 03/17/18 8:48:00 PRINCIPAL STRATEGIST lidocaine 2017-05 No Route: IV, Me moria (ANES) -13 Drug form: l 14:48: INJ, ONCE, Stop date: 03/17/18 8:48:00 PRINCIPAL STRATEGIST rocuronium 2017-05 No Route: IV, M emoria (ANES) - Drug form: l 14:48: INJ, ONCE, Stop date: 03/17/18 8:48:00 PRINCIPAL STRATEGIST propofol 2017-05 No Route: IV, Mem oria (ANES) -13 Drug form: l 14:48: INJ, ONCE, Stop date: 03/17/18 8:48:00 PRINCIPAL STRATEGIST ondansetron 2017-05 No Route: IV, Memoria (ANES) 05-17 Drug form: l 14:48: INJ, ONCE, Ismael Stop date: 03/17/18 8:48:00 PRINCIPAL STRATEGIST dexamethaso 2017-05 No Route: IV, Memoria ne (ANES) 05-17 Drug form: l 14:48: INJ, ONCE, [place] Stop date: 03/17/18 8:48:00 PRINCIPAL STRATEGIST ketOROLAC 2017-05 No IV, ONCE Thong olivier (ANES) 05-17 l 14:48: Ismael 00 Lactated 2017-05 No Route: IV, Mem oria Ringers 05-17 Total l Injection 13:58: Volume: Yi nn IV (ANES) 00 1,000, 1000 mL Start date: 03/17/18 7:58:00 PRINCIPAL STRATEGIST, Stop date: 03/17/18 8:58:00 PRINCIPAL STRATEGIST influenza 2017-05 No Notes: Memori a virus 05-13 (Same as: l vaccine, 21:44: Fluzone Cristi n inactivated 51 Quadrivale nt, Fluarix Quadrivale nt) For 3 years of age and older (0.5 mL IM) Shake well before use [facility] Bienvenido 213.33 mL, Memori a Medication 05-12 Devang Soln-IV, l 14:13: IV, Once, Ismael 00 first dose 05/12/15 8:13:00 PRINCIPAL STRATEGIST, stop date 05/12/15 8:13:00 PRINCIPAL STRATEGIST propofol No Bienvenido 40 mg = 4 Mem oria - Devang mL, l 14:04: Emulsion, Ismael 00 IV, Once, first dose 05/12/15 8:04:00 PRINCIPAL STRATEGIST, stop date 05/12/15 8:04:00 PRINCIPAL STRATEGIST propofol No Bienvenido 60 mg = 6 Mem oria -08 Devang mL, l 14:00: Emulsion, [place] 00 IV, Once, first dose 05/12/15 8:00:00 PRINCIPAL STRATEGIST, stop date 05/12/15 8:00:00 PRINCIPAL STRATEGIST propofol No Bienvenido 60 mg = 6 Mem oria -08 Devang mL, l 13:56: Emulsion, [place] 00 IV, Once, first dose 05/12/15 7:56:00 PRINCIPAL STRATEGIST, stop date 05/12/15 7:56:00 PRINCIPAL STRATEGIST propofol No Bienvenido 60 mg = 6 Mem oria 1-08 Devang mL, l 13:52: Emulsion, [place] 00 IV, Once, first dose 05/12/15 7:52:00 PRINCIPAL STRATEGIST, stop date 05/12/15 7:52:00 PRINCIPAL STRATEGIST propofol No Bienvenido 160 mg = Thong olivier - Devang 16 mL, l 13:48: Emulsion, Ismael 00 IV, Once, first dose 05/12/15 7:48:00 PRINCIPAL STRATEGIST, stop date 05/12/15 7:48:00 PRINCIPAL STRATEGIST lidocaine No Bienvenido 3 mL, Memori a 05-12 Devang Injection, l 13:47: IV, Once, [place] 00 first dose 05/12/15 7:47:00 PRINCIPAL STRATEGIST, stop date 05/12/15 7:47:00 PRINCIPAL STRATEGIST LR 1,000 mL No Jose Luis 1,000 mL, Memoria 08 Gomez IV, 30 l 13:11: mL/hr, Ismael 00 start date 05/12/15 7:11:00 PRINCIPAL STRATEGIST Lidocaine No Jose Luis 0.2 mL, Me moria 2% 0.2 mL 05-12 Gomez Injection, l IV Start 13:11: Subcutaneo Her monzon [[facility]] 00 us, Once PRN for other (see comment), first dose 05/12/15 7:11:00 PRINCIPAL STRATEGIST Ortho Yes tabs, Memoria Tri-Cyclen 1-07 Oral, l 18:00: Daily, 0 Ismael 00 Refill(s), control Dexilant 60 Yes 60 mg = 1 M emoria mg oral 07 caps, l delayed 17:59: Oral, [place] release 00 Daily, # capsule 30 caps, 0 Refill(s), GERD Immunizations Ordered Immunization Filled Immunization Date Status Commen ts Source Name Name influenza virus 2020-06-13 Completed Memorial vaccine, 21:05:00 [place] inactivated<sup>1</s up> Vital Signs Vital Name Observation Time Observation Value Comments Source Systolic (mm Hg) 2020-07-11 21:32:00 Thong rial [place] Diastolic (mm Hg) 2020-07-11 21:32:00 Mem orial [place] Heart Rate 2020-07-11 21:32:00 [facility] Ismael Height 2020-07-11 21:32:00 149.86 cm Memorial [place] Weight 2020-07-11 21:32:00 [facility] [place] BMI Calculated 2020-07-11 21:32:00 Memori al [place] Systolic (mm Hg) 2020-06-15 21:09:00 Thong rial [place] Diastolic (mm Hg) 2020-06-15 21:09:00 Mem orial [place] Heart Rate 2020-06-15 21:09:00 [facility] [place] Height 2020-06-15 21:09:00 149.86 cm Memorial [place] Weight 2020-06-15 21:09:00 [facility] Ismael BMI Calculated 2020-06-15 21:09:00 Memori al Ismael Systolic (mm Hg) 2020-06-13 21:30:00 Thong rial [place] Diastolic (mm Hg) 2020-06-13 21:30:00 Mem orial [place] Height 2020-06-13 21:30:00 149.86 cm Memorial [place] Weight 2020-06-13 21:30:00 [facility] Ismael BMI Calculated 2020-06-13 21:30:00 Memori al [place] Systolic (mm Hg) 2020-03-14 20:40:00 Thong rial Ismael Diastolic (mm Hg) 2020-03-14 20:40:00 Mem orial [place] Heart Rate 2020-03-14 20:40:00 [facility] Ismael Height 2020-03-14 20:40:00 149.86 cm Memorial [place] Weight 2020-03-14 20:40:00 [facility] [place] BMI Calculated 2020-03-14 20:40:00 Memori al Ismael Respitory Rate 2018-03-17 16:45:00 Memori al [place] Systolic (mm Hg) 2018-03-17 16:45:00 Thong rial Ismael Diastolic (mm Hg) 2018-03-17 16:45:00 Mem orial [place] Respitory Rate 2018-03-17 16:15:00 Memori al [place] Systolic (mm Hg) 2018-03-17 16:15:00 Thong rial Ismael Diastolic (mm Hg) 2018-03-17 16:15:00 Mem orial [place]mael Respitory Rate 2018-03-17 16:00:00 Memori al [place] Systolic (mm Hg) 2018-03-17 16:00:00 Thong rial Ismael Diastolic (mm Hg) 2018-03-17 16:00:00 Mem orial Ismael Temperature Oral (F) 2018-03-17 12:00:00 98.5 F Memorial Ismael Heart Rate 2018-03-13 21:33:00 [facility] Ismael BMI Calculated 2018-03-13 21:26:00 Memori al [place]ma[place] Weight 2018-03-13 21:26:00 Memorial [place] Height 2018-03-13 21:26:00 149.86 cm Memorial [place] Systolic (mm Hg) 2015-05-12 14:45:00 Thong rial [place] Respitory Rate 2015-05-12 14:45:00 Memori al [place] Systolic (mm Hg) 2015-05-12 14:20:00 Thong rial Ismael Respitory Rate 2015-05-12 14:20:00 Memori al [place] Heart Rate 2015-05-12 14:20:00 Memorial Ismael Heart Rate 2015-05-12 14:10:00 Memorial Ismael Respitory Rate 2015-05-12 14:10:00 Memori al [place] Systolic (mm Hg) 2015-05-12 14:10:00 Thong rial [place] Temperature Oral (F) 2015-05-12 14:00:00 36.6 [facility] [place] Heart Rate 2015-05-12 14:00:00 [facility] Ismael Height 2015-05-12 13:33:00 149.86 cm Memorial [place] Weight 2015-05-12 13:33:00 [facility] Ismael Temperature Oral (F) 2015-05-12 13:33:00 37 [facility] Ismael Height 2015-05-11 17:57:00 149 cm [facility] Ismael Weight 2015-05-11 17:57:00 [facility] Ismael Procedures Procedure Date / Time Performing Source Performed Clinician COLONOSCOPY FLEXIBLE; DIAGNOSTIC; 2015-05-12 Jose Luis Gomez INCL. COLLECTION OF SPECIMENS 13:49:00 69490 (Other)<sup>1</sup> ESOPHAGOGASTRODUODENOSCOPY; 2015-05-12 Jose Luis Gomez FLEXIBLE DIAGNOSTIC [id number] 13:49:00 (Other)<sup>2</sup> Esophagogastroduodenoscopy 2014-05-09 Violette Guevara 06:00:00 section<sup>1</sup> Mem kvng Ismael Encounters Start End Encounter Admission Attending Care Care Encounter Source Date/Time Date/Time Type Type Clinicians Facility Department ID 2020-07-11 2020-07-12 [place] [id number] Memoria 21:30:00 05:59:59 r Primary 04 [facility] 2020-07-11 2020-07-11 Outpatient Leidy-Will MG MG [id number] 15:30:00 23:59:59 isJosefa 04 2020-07-11 2020-07-11 Outpatient MHIE TIANIE [id number] Memoria 15:30:00 15:30:00 04 juventino Ismael 2020-07-08 2020-07-08 Laboratory Lab, Adc [facility] [id number] 12:58:17 13:18:17 Only Fam Pob I Health [id number] [place] [id number] Professio [phone] nal [address] 2020-06-26 2020-06-27 [place] [id number] Memoria 22:00:00 05:59:59 r Primary 05 [facility] 2020-06-26 2020-06-26 Outpatient Leidy-Will MG MG [id number] 16:00:00 23:59:59 is, Josefa 05 2020-06-26 2020-06-26 Outpatient MHIE MHIE [id number] Memoria 16:00:00 16:00:00 05 juventino [place] 2020-06-24 2020-06-24 Laboratory Lab, Adc [facility] [id number] 17:36:34 17:56:34 Only Fam Pob I Health [id number] [place] [id number] Professio [phone] nal 0[address] 2020-06-16 2020-06-16 Outpatient MHIE MHIE [id number] Memoria 11:15:00 11:15:00 02 l Ismael 2020-06-15 2020-06-16 Outpatient nullFlavo [facility] [id number] Memoria 21:00:00 05:59:59 r Primary 03 [facility] 2020-06-15 2020-06-15 Outpatient VISIT, MHMG MHMG [id number] 15:00:00 23:59:59 NURSE BPF 2020-06-15 2020-06-15 Outpatient MHIE MHIE [id number] Memoria 15:00:00 15:00:00 03 [facility] 2020-06-13 2020-06-14 Between nullFlavo MHMG [id number] Memoria 19:54:38 19:54:38 Visit r Primary 00 l [facility] 2020-06-13 2020-06-14 Outpatient MHMG MHMG [id number] 13:54:38 13:54:38 00 2020-06-13 2020-06-14 Outpatient nullFlavo [facility] [id number] Memoria 21:00:00 05:59:59 r Primary 01 [facility] 2020-06-13 2020-06-13 Outpatient Leidy-Will MHMG MHMG [id number] 15:00:00 23:59:59 Josefa wall 2020-06-13 2020-06-13 Outpatient MHIE MHIE [id number] Memoria 15:00:00 15:00:00 01 [facility] 2020-04-18 2020-04-19 Outpt Diag nullFlavo [facility] [id number] Memoria 14:33:00 05:59:00 Services r Outpatient 00 [facility] 2020-04-18 2020-04-18 Outpatient Kole, MHOIP MHOIP [id number] 08:33:00 23:59:00 Januarychula Posada 2020-03-14 2020-03-15 Outpatient nullFlavo [facility] [id number] Memoria 20:30:00 05:59:59 r Primary 00 l [facility] 2020-03-14 2020-03-14 Outpatient Leidy-Will MHMG MHMG [id number] 14:30:00 23:59:59 isJosefa 00 2020-03-14 2020-03-14 Outpatient MHIE MHIE [id number] Memoria 14:30:00 14:30:00 00 l Ismael 2018-03-17 2018-03-17 Day nullFlavo [facility] [id number] Memoria 11:18:00 18:05:00 Surgery r [place] 01 l [facility] 2018-03-17 2018-03-17 Outpatient Bermudez de [facility] [id number] 05:18:00 12:05:00 DhruvSupa P 2016-09-27 2016-09-28 Outpt Diag nullFlavo [facility] [id number] Memoria 19:34:00 04:59:00 Services r Outpatient 00 l Imaging Ismael Willet 2016-09-27 2016-09-27 Outpatient Jason, MH29 [id number] 14:34:00 23:59:00 Jose Luis H 00 2015-05-12 2015-05-12 Outpatient [id number]. [id number] Memoria 06:35:49 08:45:00 [id number] 3.2081.20 81.2000 Cristi n 00 [facility] 2015-05-12 2015-05-[address] [facility] [id number] Memoria 06:35:49 08:45:00 r juventino Guevara 2015-05-10 2015-05-11 Outpatient nullFlavo [facility] [id number] Memoria 13:35:00 05:59:00 r [place] 00 l Willet Yi nn 2015-05-10 2015-05-10 Outpatient Jason, MHSL SL [id number] 07:35:00 23:59:00 Jose Luis H 00 Results Test Description Test Time Test Comments Results Result Comments Source HEMATOLOGY 2020-07-11 0.5 Memorial Yi nn 22:24:00 LIPIDS 2020-07-11 183 Memorial Yi nn 22:24:00 LIPIDS 2020-07-11 58 Memorial Yi nn 22:24:00 LIPIDS 2020-07-11 143 Memorial Yi nn 22:24:00 LIPIDS 2020-07-11 101 Memorial Yi nn 22:24:00 LIPIDS 2020-07-11 3.2 Memorial Yi nn 22:24:00 LIPIDS 2020-07-11 125 Memorial Yi nn 22:24:00 SPECIAL CHEMISTRY 2020-07-11 5.4 Memoria l [place] 22:24:00 CHEM PANEL 2020-07-11 80 Memorial Yi [...] code = MCH) 28.1 pg 27.0-33.0 Memorial PfahypyNZYHXUGHMO4986-80-56 22:24:0032.6[facility] HermannHEMATOLOGY 2020-07-11 22:24:0012.9[facility] OiierhjHIOHJKHTCK0345-67-62 22:24:46797Msstmqhi FgabmirEGAFGVTBJD5377-64-21 22:24:0010.0[facility] UrhqkjpRAABINKPSV3672-35-88 22:24:090729Ctterppg ZbtdsgtPYWTCBHXXM3323-56-04 22:24:524685Cssxadxk [place] TDLUHVRHWQ2761-90-40 22:24:49403Cnkwfhgt ZywulmrPUUFOMEJFR6231-26-82 22:24:0052 Memorial YpxshtaWTNNUCHOER8731-28-68 22:24:0029[facility]ann[facility]MATOLOGY 2020-07-11 22:24:0057.2[facility] WfwgrjjNLTVGIAAKV5213-76-42 22:24:0030.1[facility] EzbclaiELCUDVSPDR6807-07-20 22:24:0011.3[facility] TucspknZNBWOAWAJL0015-86-77 22:24:000.9[facility]orial LstpnjnPHDRKHZYDE3160-10-16 21:14:88288.80[facility] HermannUS THYROID QFCGPNKOGL7686-16-76 14:31:43CLINICAL INDICATION: E04.9 Nontoxic goiter, unspecifiedTECHNIQUE: Real time and doppler imaging of the thyroid is performed using a high frequency probe on the e[employer] Vision Preirus .Comparison Study: noneFINDINGS:Right lobe: 4.0 x 1.6 x 1.4 cm.Left lobe: 4.0 x 1.6 x 1.7 cm.Isthmus: 6.1 mm.Comments: Echotexture is homogeneous without evidence of a focal nodule.IMPRESSION:Normal thyroid ultrasound.CHEM PANEL 2018-03-13 21:33:0095[facility] RyucmefXKFEYSOYBUMOM4257-55-14 21:33:00Negative *NA*(03/13/18 3:33 PM)[facility] WulxxlgJTGKZVFJOB8357-60-75 21:33:000.0[facility] IlbjcfbEPVEKWTMHX5875-26-57 21:33:001.9[facility] XlvgyxaSDBKMQBHVH3793-29-01 21:33:004.4[facility]orial SdtefhkSDVMPGTFZT5233-37-63 21:33:000.5[facility] [place] EZNPMLVKBP0414-27-46 21:33:000.0[facility] SnrhawpMEUGJNXLUJ1360-05-78 21:33:000.5 Memorial JeqmzrwUQPGGQCFPE7840-39-07 21:33:006.7[facility] HermannHEMATOLOGY 2018-03-13 21:33:0027.9[facility] NbaswsdDUDFKPGMNI9485-73-61 21:33:0064.4[facility] SdmuobzSTFOLEIARA5723-15-21 21:33:000.5[facility] VitlmlaLTXTKYGIMM8301-84-44 21:33:004.10[facility] VrhceaoVQUXYGZVZI2385-57-17 21:33:0034.0[facility] [place] IHMGEESQZX8368-34-63 21:33:0011.0[facility] XyfhnwkGDLDZRYJCO0395-11-86 21:33:00 17.3[facility]orial HfoabdtEYNXRQNXNT5447-69-57 21:33:66353Edybpxix HermannHEMATOLOGY 2018-03-13 21:33:007.7[facility] WyxdqinZFBIIBQRCM6924-11-57 21:33:0082.8[facility] PxjoknbEAWJRKOGDX7433-44-44 21:33:0032.3[facility] LtxcezcLACWAHUUHI4386-12-99 21:33:00 Test Item Value Reference Range Interpretation Comments MCH (test code = MCH) 26.7 pg 27.0-31.0 Memorial FuhokpzWSHCIECIZL8102-40-76 21:33:006.9[facility]annLABORATORY 2015-05-12 13:37:00Negative, Control Present (05/12/2015 07:37:00)[facility]
[2020-12-07] MEDS ORDERED: AZITHROMYCIN 250 MG TAB ONE (23:18)
[2020-12-07] MEDS ORDERED: IBUPROFEN 400 MG TAB ONE (23:18)
--- NOTE | 2020-12-07 23:43 | EDPHYS ---
Physician Documentation [facility] Name: Maggie Bowles Age: 25 yrs Sex: Female : 1995 Arrival Date: 12/07/2020 Time: 19:20 Bed DIS2 Private MD: ED Physician Ralph Arthur HPI: 12/07 22:25 This 25 yrs old Female presents to ER via Ambulatory with complaints of Sore mh7 Throat, Other. 22:25 The patient presents with sore throat, sores in throat. The patient describes throat mh7 pain as constant. Onset: The symptoms/episode began/occurred today. Severity of symptoms: At their worst the symptoms were moderate, earlier today, in the emergency department the symptoms have improved, moderately. Modifying factors: The symptoms are alleviated by over the counter medications, Tylenol, the symptoms are aggravated by swallowing, Patient's oral intake status: good. Associated signs and symptoms: Pertinent positives: cough, Pertinent negatives chest pain, chills, diarrhea, earache, fever, flu-like symptoms, headache, nausea, rhinorrhea, shortness of breath, vomiting. The patient has been recently seen at the [facility] Emergency Department, yesterday. 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 - Social history:: Smoking status: Patient denies any tobacco usage or history of. ROS: 22:25 Constitutional: Negative for fever, chills, and weight loss, Eyes: Negative for injury, mh7 pain, redness, and discharge, Neck: Negative for injury, pain, and swelling, Cardiovascular: Negative for chest pain, palpitations, and edema. 22:25 Abdomen/GI: Negative for abdominal pain, nausea, vomiting, diarrhea, and constipation, : Negative for injury, bleeding, discharge, and swelling, MS/Extremity: Negative for injury and deformity. 22:25 Skin: Negative for injury, rash, and discoloration, Neuro: Negative for headache, weakness, numbness, tingling, and seizure, Psych: Negative for depression, anxiety, suicide ideation, homicidal ideation, and hallucinations, Allergy/Immunology: Negative for hives, rash, and allergies, Endocrine: Negative for neck swelling, polydipsia, polyuria, polyphagia, and marked weight changes, Hematologic/Lymphatic: Negative for swollen nodes, abnormal bleeding, and unusual bruising. 22:25 Respiratory: Negative for dyspnea on exertion, hemoptysis, orthopnea, pleurisy, shortness of breath, sputum production, wheezing. 22:25 Back: Positive for lower back pain with coughing only, Negative for injury or acute deformity, decreased range of motion, pain at rest, pain with movement, radiated pain. Exam: 22:25 Constitutional: This is a well developed, well nourished patient who is awake, alert, mh7 and in no acute distress. Head/Face: Normocephalic, atraumatic. Eyes: Pupils equal round and reactive to light, extra-ocular motions intact. Lids and lashes normal. Conjunctiva and sclera are non-icteric and not injected. Cornea within normal limits. Periorbital areas with no swelling, redness, or edema. 22:25 Neck: Trachea midline, no thyromegaly or masses palpated, and no cervical lymphadenopathy. Supple, full range of motion without nuchal rigidity, or vertebral point tenderness. No Meningismus. Chest/axilla: Normal chest wall appearance and motion. Nontender with no deformity. No lesions are appreciated. Cardiovascular: Regular rate and rhythm with a normal S1 and S2. No gallops, murmurs, or rubs. Normal PMI, no JVD. No pulse deficits. Respiratory: Lungs have equal breath sounds bilaterally, clear to auscultation and percussion. No rales, rhonchi or wheezes noted. No increased work of breathing, no retractions or nasal flaring. Abdomen/GI: Soft, non-tender, with normal bowel sounds. No distension or tympany. No guarding or rebound. No evidence of tenderness throughout. Back: No spinal tenderness. No costovertebral tenderness. Full range of motion. Skin: Warm, dry with normal turgor. Normal color with no rashes, no lesions, and no evidence of cellulitis. MS/ Extremity: Pulses equal, no cyanosis. Neurovascular intact. Full, normal range of motion. Neuro: Awake and alert, GCS 15, oriented to person, place, time, and situation. Cranial nerves II-XII grossly intact. Motor strength 5/5 in all extremities. Sensory grossly intact. Cerebellar exam normal. Normal gait. Psych: Awake, alert, with orientation to person, place and time. Behavior, mood, and affect are within normal limits. 22:25 ENT: Mouth: is normal, Posterior pharynx: Airway: normal, Tonsils: bilaterally enlarged, with erythema, with exudate, Uvula: normal, swelling, is not appreciated, erythema, that is moderate, exudate, that is mild, peritonsillar mass, is not appreciated, pooling of secretions, is not appreciated, Dental exam: normal, Voice: is normal. Vital Signs: 19:21 BP 112 / 85; Pulse 112; Resp 16 S; Temp 97.8(TE); Pulse Ox 98% on R/A; Weight 98.88 kg ca1 (R); Height 5 ft. 0 in. (152.40 cm) (R); Pain 6/10; 19:21 Body Mass Index 42.57 (98.88 kg, 152.40 cm) ca1 MDM: 23:38 Differential diagnosis: bronchitis, group A strep tonsillitis, pharyngitis, mh7 tonsillitis, upper respiratory infection, viral syndrome. Data reviewed: vital signs, nurses notes. Data interpreted: Pulse oximetry: on room air is 98 %. Interpretation: normal. 23:39 Counseling: I had a detailed discussion with the patient and/or guardian regarding: the [facility] historical points, exam findings, and any diagnostic results supporting the discharge/admit diagnosis, the need for outpatient follow up, to return to the emergency department if symptoms worsen or persist or if there are any questions or concerns that arise at home. Response to treatment: the patient's symptoms have markedly improved after treatment, HR=80 bpm. 23:42 Patient medically screened. [facility] 12/07 22:40 Order name: PO challenge; Complete Time: 22:58 [facility] Administered Medications: 22:58 Drug: Ibuprofen 800 mg Route: PO; bb 23:54 Follow up: Response: No adverse reaction bb 22:58 Drug: AZITHromycin 500 mg Route: PO; bb 23:53 Follow up: Response: No adverse reaction bb Disposition Summary: 12/07/20 23:42 Discharge Ordered Location: Home [facility] Problem: an ongoing problem [facility] Symptoms: have improved [facility] Condition: Stable [facility] Diagnosis - Pharyngitis, Tonsilitis, Exudative [facility] - Bronchitis [facility] Followup: [facility] - With: Private Physician - When: 1 - 2 days - Reason: Worsening of condition, Recheck today's complaints, Continuance of care, Re-evaluation by your physician Discharge Instructions: - Discharge Summary Sheet [facility] - Tonsillitis, [id number] [facility] - Acute Bronchitis, Adult, [id number] [facility] - Pharyngitis, [id number] [facility] Forms: - Medication Reconciliation Form [facility] - Thank You Letter [facility] - Antibiotic Education [facility] - Prescription Opioid Use [facility] Prescriptions: - Tessalon Perles 100 mg Oral Capsule - take 1 capsule by ORAL route every 8 hours As needed; 15 capsule; Refills: 0, [facility] Product Selection Permitted - Zithromax Z-Nicholas 250 mg Oral Tablet - take 1 tablet by ORAL route as directed for 5 days Day 1 - take two (2) tablets [facility] one time. Day 2, 3, 4 , 5 take one (1) tablet once daily.; 6 tablet; Refills: 0, Product Selection Permitted Signatures: Sumaya Lockhart RN RN Nella Magaña RN RN ca1 Ralph Arthur MD MD [facility] Corrections: (The following items were deleted from the chart) 19:26 19:26 PSHx: None; ca1 ca1
--- NOTE | 2020-12-07 23:43 | ER ---
Nurse's Notes [facility] Name: Maggie Bowles Age: 25 yrs Sex: Female : 1995 Arrival Date: 12/07/2020 Time: 19:20 Bed DIS2 Private MD: Diagnosis: Pharyngitis, Tonsilitis, Exudative;Bronchitis Presentation: 12/07 19:21 Chief complaint: Patient states: COVID, FLU and Strep Negative at 12/06/2020. Test done ca1 here. Back today, now having blisters on throat, pain with breathing, R flank pain. Coronavirus screen: Client denies travel out of the [place] in the last 14 days. The client reports previous COVID testing was negative. Date of collection: December 06, 2020. Ebola Screen: Patient negative for fever greater than or equal to 101.5 degrees Fahrenheit, and additional compatible Ebola Virus Disease symptoms Patient denies exposure to infectious person. Patient denies travel to an Ebola-affected area in the 21 days before illness onset. No symptoms or risks identified at this time. Initial Sepsis Screen: Does the patient meet any 2 criteria? No. Patient's initial sepsis screen is negative. Does the patient have a suspected source of infection? No. Patient's initial sepsis screen is negative. Risk Assessment: Do you want to hurt yourself or someone else? Patient reports no desire to harm self or others. Onset of symptoms was December 07, 2020. 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 - Social history:: Smoking status: Patient denies any tobacco usage or history of. Screenin:59 Abuse screen: Denies threats or abuse. Nutritional screening: No deficits noted. bb Tuberculosis screening: No symptoms or risk factors identified. Fall Risk None identified. Assessment: 22:59 General: Appears in no apparent distress. Behavior is calm, cooperative. Pain: bb Complains of pain in throat. Neuro: Level of Consciousness is awake, alert, obeys commands, Oriented to person, place, time, situation. Cardiovascular: No deficits noted. Respiratory: Airway is patent Respiratory effort is even, unlabored. GI: No signs and/or symptoms were reported involving the gastrointestinal system. EENT: Reports pain in throat. Derm: Skin is pink, warm \T\ dry. Musculoskeletal: Circulation, motion, and sensation intact. 23:52 Reassessment: pt verbalized understanding of and agrees to plan of care discharge bb instructions given pt ambulated with steady gait to exit. Vital Signs: 19:21 BP 112 / 85; Pulse 112; Resp 16 S; Temp 97.8(TE); Pulse Ox 98% on R/A; Weight 98.88 kg ca1 (R); Height 5 ft. 0 in. (152.40 cm) (R); Pain 6/10; 19:21 Body Mass Index 42.57 (98.88 kg, 152.40 cm) ca1 ED Course: 19:20 Patient arrived in ED. ca1 19:26 Triage completed. ca1 19:26 Arm band placed on right wrist. ca1 22:21 Ralph Arthur MD is Attending Physician. [facility] 22:59 Patient has correct armband on for positive identification. bb 23:01 No provider procedures requiring assistance completed. Patient did not have IV access bb during this emergency room visit. Administered Medications: 22:58 Drug: Ibuprofen 800 mg Route: PO; bb 23:54 Follow up: Response: No adverse reaction bb 22:58 Drug: AZITHromycin 500 mg Route: PO; bb 23:53 Follow up: Response: No adverse reaction bb Outcome: 23:42 Discharge ordered by . 7 23:53 Discharged to home ambulatory. bb 23:53 Condition: stable 23:53 Discharge instructions given to patient, Instructed on discharge instructions, follow up and referral plans. medication usage, Demonstrated understanding of instructions, follow-up care, medications, Prescriptions given X 2. 23:54 Patient left the ED. bb Signatures: Sumaya Lockhart RN RN bb Nella Manuel RN RN ca1 Ralph Arthur MD MD [facility] Corrections: (The following items were deleted from the chart) 19:26 19:26 PSHx: None; ca1 ca1
[2020-12-08 00:37] VITALS: BP 112/85; TEMP 97.8; O2SAT 98
== END 2020-12-07 23:54 | disposition home or self-care (01) ==
LOC: ER 19:14
DX: J03.90 Acute tonsillitis, unspecified (principal); J40 Bronchitis, not specified as acute or chronic; Z88.0 Allergy status to penicillin; Z88.1 Allergy status to other antibiotic agents
CPT/HCPCS: 99283

== ENCOUNTER 2021-04-11 09:27 | Emergency (ER) | payer OTHER ==
--- OUTSIDE RECORDS SUMMARY | 2021-04-11 09:31 | XMS REPORT | Continuity of Care Document ---
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 Attending Clinician DANGELO Attending Clinician Unavailable Payers Payer Name Policy Type Policy Number Effective Date Expiration Date S ource Problems Condition Condition Condition Status Onset Resolution Last Treating Co mments Source Name Details Category Date Date Treatment Clinician Date G44.85 - Diagnosis Active 2019-052020-04-18 M emoria PRIMARY 06-05 08:43:00 l STABBING G44.85 - 00:01: Herm elida HEADACHE PRIMARY 00 STABBING HEADACHE Active 04/04/2020 [facility] N/A Diagnosis Active 2017-052018-03-13 Mem oria -06 10:05:00 l N/A 00:00: Ismael 00 Active 03/10/2018 [facility] K80.1 Diagnosis Active 2017-052018-03-18 Mem oria CHOLEITHIA -06 16:29:00 l SIS K80.1 00:00: Ismael CHOLEITHIA 00 SIS Active 03/10/2018 [facility] R11.2 Diagnosis Active 2015-05-10 Mem oria -05 07:44:00 l R11.2 00:00: Ismael 00 Active 05/09/2015 [facility] [place] Hematemesi Problem 2014-052015-05-14 M emoria s 2-08 05:02:14 l (disorder) 00:00: Cristi n Hematemesi 00 s (disorder) 04/11/2015 Problem 05/14/2015 2x 1 episode [facility] Abnormal Problem 2018-10-04 Mem oria levels of 13:08:14 l other Abnormal Cristi n serum levels of enzymes other serum enzymes 10/04/2018 [facility] Gastritis, Problem 2018-10-04 M emoria unspecifie 13:08:14 l d, without Cristi n bleeding Gastritis, unspecifie d, without bleeding 10/04/2018 [facility] Gastro-eso Problem 2018-10-04 M emoria phageal 13:08:14 l reflux Ismael disease Gastro-eso without phageal esophagiti reflux s disease without esophagiti s 10/04/2018 [facility] Essential Problem 2018-10-04 Me moria (primary) 13:08:14 l hypertensi Cristi n on Essential (primary) hypertensi on 10/04/2018 [facility] Unspecifie Problem 2018-10-04 M emoria d asthma, 13:08:14 l uncomplica Cristi n karla Unspecifie d asthma, uncomplica karla 10/04/2018 [facility] Anemia, Problem 2018-10-04 Thong olivier unspecifie 13:08:14 l d Anemia, Ismael unspecifie d 10/04/2018 [facility] Other long Problem 2018-10-04 M emoria term 13:08:14 l (current) 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 10/04/2018 [facility] Allergy Problem 2018-10-04 Thong olivier status to 13:08:14 l penicillin Allergy Her monzon status to penicillin 10/04/2018 [facility] Cardiac Problem 2015-05-14 Thong olivier asthma 05:02:14 l (disorder) Cardiac Her monzon asthma (disorder) Problem 05/14/2015 1no inhaler at this time [facility] Rectal Problem 2015-05-14 Memor ia hemorrhage 05:02:14 l (disorder) Rectal Herm elida hemorrhage (disorder) Problem 05/14/2015 [facility] Asthma Problem Active 2020-07-14 Memor ia (disorder) 02:13:22 l Asthma Ismael (disorder) Active Problem 07/14/2020 no meds [facility] Eczema Problem Active 2020-07-14 Memor ia (disorder) 02:13:22 l Eczema Ismael (disorder) Active Problem 07/14/2020 [facility], [facility] Gastroesop Problem Active 2020-07-14 M marya hageal 02:13:22 l reflux Almo disease Gastroesop (disorder) hageal reflux disease (disorder) Active Problem 07/14/2020 [facility] [place] Headache Problem Active 2020-07-14 Mem oria (finding) 02:13:22 l Headache Cristi n (finding) Active Problem 07/14/2020 [facility] [place] Major Problem Active 2020-07-14 Memor ia depressive 02:13:22 l disorder Major Ismael (disorder) depressive disorder (disorder) Active Problem 07/14/2020 [facility], [facility] [place] Morbid Problem Active 2020-07-14 Memor ia obesity 02:13:22 l (disorder) Morbid Herm elida obesity (disorder) Active Problem 07/14/2020 [facility], [facility] [place] Chiari Problem Active 2020-07-14 Memor ia malformati 02:13:22 l on type I Chiari Yi nn (disorder) malformati on type I (disorder) Active Problem 07/14/2020 [facility] Patient Problem Active 2020-07-14 Thong olivier encounter 02:13:22 l status Patient Ismael (finding) encounter status (finding) Active Problem 07/14/2020 [facility] History of Past Illness Condition Condition Condition Status Onset Resolution Last Treating Co mments Source Name Details Category Date Date Treatment Clinician Date Calculus Problem 2017-052018-10-04 2018-10-04 Memoria of 05-21 13:08:14 13:08:14 l gallbladde Calculus 04:59: He rmann r with of 16 chronic gallbladde cholecysti r with tis chronic without cholecysti obstructio tis n without obstructio n 03/21/2018 10/04/2018 [facility] Allergies, Adverse Reactions, Alerts Allergy Allergy Status Severity Reaction(s) Onset Inactive Treating Comm ents Source Name Type Date Date Clinician NO KNOWN Drug Active Univers ALLERGIE Class ity of [facility] penicill penicill Active Memori a in in l Almo Augmenti Augmenti Active Memori a n n l Ismael Latex Latex Active Memoria juventino Guevara amoxicil amoxicil Active Memori a tatiana tatiana juventino Guevara Social History Social Habit Start Date Stop Date Quantity Comments Source Sex Assigned At [facility] Exposure to Yes [facility] SARS-CoV-2 (event) Medica l Branch Social History 2015-05-11 2015-05-11 [facility] 05:59:00 05:59:00 Smoking Status Start Date Stop Date Source Unknown if ever smoked [facility] Medications Ordered Filled Start Stop Current Ordering Indication Dosage Frequency Signature Comments Components Source Medication Medication Date Date Medication? Clinician (SIG) Name Name Bromphenira 0 Yes 5 mL, PO, M emoria mine 2-22 Q4H, PRN l Maleate 0.4 22:29: cough, X 8 Ismael MG/ML / 00 day, # 240 Dextrometho mL, 0 rphan Refill(s), Hydrobromid Pharmacy: e 2 MG/ML / [id number], Hydrochlori 149.86, de 6 MG/ML cm, Oral 06/15/20 Solution 16:09:00 [employer], Height, 97.756, kg, 06/15/20 16:09:00 [employer], Weight benzonatate Yes 200 mg = 1 Memoria 200 MG Oral 2-22 cap, PO, l Capsule 22:29: TID, X 7 Cristi n [Tessalon] 00 day, # 21 cap, 0 Refill(s), Pharmacy: [facility] #[id number], 149.86, cm, 06/15/20 16:09:00 [employer], Height, 97.756, kg, 06/15/20 16:09:00 [employer], Weight naproxen Yes 500 mg = 1 Mem oria 500 mg oral 2-22 tab, PO, l tablet 22:29: BID, PRN Almo 00 Pain, # 30 tab, 0 Refill(s), Pharmacy: [facility] #[id number], 149.86, cm, 06/15/20 16:09:00 [employer], Height, 97.756, kg, 06/15/20 16:09:00 [employer], Weight promethazin 2019-05 Yes 12.5 mg = [...] Weight 78, kg, Start date: 03/17/18 10:08:00 [employer], Stop date: 03/17/18 10:08:00 [employer] Fentanyl 2017-05 No Notes: Memoria - (Same as: l 15:10: Sublimaze) Preservat judie free. Morphine 2017-05 No Notes: Memoria -13 (Same l 15:10: as:MORPhin e Sulfate) Flumazenil [...] / 05-17 (Same as: l Hydrocodone 14:55: Alsea Yi nn Bitartrate 00 325/5) Do 5 MG Oral not exceed Tablet 4gm/day of acetaminop hen. Morphine 2017-05 No Notes: Memoria -13 (Same l 14:55: as:MORPhin e Sulfate) Phenergan 2017-05 No Notes: Memori a -13 (Same as: l 14:55: Phenergan) Almo 00 Zofran 2017-05 No Notes: Memoria -13 (Same as: l 14:55: Zofran) MEDICATION WASTE Product Size: 4 mg Product Wasted: ___ mg glycopyrrol 2017-05 No Route: IV, Memoria ate (ANES) 05-17 Drug form: l 14:55: INJ, ONCE, Stop date: 03/17/18 8:55:00 [employer] neostigmine 2017-05 No Route: IV, Memoria (ANES) 05-17 Drug form: l 14:55: INJ, ONCE, Stop date: 03/17/18 8:55:00 [employer] ceFAZolin 2017-05 No Route: IV, Me moria (ANES) 05-17 Drug form: l 14:53: INJ, ONCE, Stop date: 03/17/18 8:53:00 [employer] midazolam 2017-05 No Route: IV, Me moria (ANES) 05-17 Drug form: l 14:48: SOLN, ONCE, Stop date: 03/17/18 8:48:00 [employer] fentaNYL 2017-05 No Route: IV, Mem oria (ANES) 05-17 Drug form: l 14:48: INJ, ONCE, Stop date: 03/17/18 8:48:00 [employer] lidocaine 2017-05 No Route: IV, Me moria (ANES) -13 Drug form: l 14:48: INJ, ONCE, Stop date: 03/17/18 8:48:00 [employer] rocuronium 2017-05 No Route: IV, M emoria (ANES) 05-17 Drug form: l 14:48: INJ, ONCE, Stop date: 03/17/18 8:48:00 [employer] propofol 2017-05 No Route: IV, Mem oria (ANES) 05-17 Drug form: l 14:48: INJ, ONCE, Stop date: 03/17/18 8:48:00 [employer] ondansetron 2017-05 No Route: IV, Memoria (ANES) 05-17 Drug form: l 14:48: INJ, ONCE, Ismael 00 Stop date: 03/17/18 8:48:00 [employer] dexamethaso 2017-05 No Route: IV, Memoria ne (ANES) 05-17 Drug form: l 14:48: INJ, ONCE, Stop date: 03/17/18 8:48:00 [employer] ketOROLAC 2017-05 No IV, ONCE Thong olivier (ANES) 05-17 l 14:48: Ismael 00 Lactated 2017-05 No Route: IV, Mem oria Ringers 05-17 Total l Injection 13:58: Volume: Yi nn IV (ANES) 00 1,000, 1000 mL Start date: 03/17/18 7:58:00 [employer], Stop date: 03/17/18 8:58:00 [employer] influenza 2017-05 No Notes: Memori a virus 05-13 (Same as: l vaccine, 21:44: Fluzone Cristi n inactivated 51 Quadrivale nt, Fluarix Quadrivale nt) For 3 years of age and older (0.5 mL IM) Shake well before use [facility] [place] Bienvenido 213.33 mL, Memori a Medication 05-12 Devang Soln-IV, l 14:13: IV, Once, Almo first dose 05/12/15 8:13:00 [employer], stop date 05/12/15 8:13:00 [employer] propofol No Bienvenido 40 mg = 4 Mem oria 05-12 Devang mL, l 14:04: Emulsion, Ismael 00 IV, Once, first dose 05/12/15 8:04:00 [employer], stop date 05/12/15 8:04:00 [employer] propofol No Bienvenido 60 mg = 6 Mem oria 05-12 Devang mL, l 14:00: Emulsion, Almo 00 IV, Once, first dose 05/12/15 8:00:00 [employer], stop date 05/12/15 8:00:00 [employer] propofol No Bienvenido 60 mg = 6 Mem oria 1-08 Devang mL, l 13:56: Emulsion, Almo 00 IV, Once, first dose 05/12/15 7:56:00 [employer], stop date 05/12/15 7:56:00 [employer] propofol No Bienvenido 60 mg = 6 Mem oria -08 Devang mL, l 13:52: Emulsion, Almo 00 IV, Once, first dose 05/12/15 7:52:00 [employer], stop date 05/12/15 7:52:00 [employer] propofol No Bienvenido 160 mg = Thong olivier - Devang 16 mL, l 13:48: Emulsion, Ismael 00 IV, Once, first dose 05/12/15 7:48:00 [employer], stop date 05/12/15 7:48:00 [employer] lidocaine No Bienvenido 3 mL, Memori a 05-12 Devang Injection, l 13:47: IV, Once, Ismael 00 first dose 05/12/15 7:47:00 [employer], stop date 05/12/15 7:47:00 [employer] LR 1,000 mL No Jose Luis 1,000 mL, Memoria 05-12 Gomez IV, 30 l 13:11: mL/hr, Ismael 00 start date 05/12/15 7:11:00 [employer] Lidocaine No Jose Luis 0.2 mL, Me moria 2% 0.2 mL 05-12 Gomez Injection, l IV Start 13:11: Subcutaneo Her monzon [[place]] 00 us, Once PRN for other (see comment), first dose 05/12/15 7:11:00 [employer] Ortho Yes tabs, Memoria Tri-Cyclen 1-07 Oral, l 18:00: Daily, 0 Almo 00 Refill(s), control Dexilant 60 Yes 60 mg = 1 M emoria mg oral 1-07 caps, l delayed 17:59: Oral, Almo release 00 Daily, # capsule 30 caps, 0 Refill(s), GERD Immunizations Ordered Immunization Filled Immunization Date Status Commen ts Source Name Name influenza virus 2020-06-13 Completed Memorial vaccine, 21:05:00 Almo inactivated<sup>1</s up> Vital Signs Vital Name Observation Time Observation Value Comments Source Systolic (mm Hg) 2020-07-11 21:32:00 Thong rial Ismael Diastolic (mm Hg) 2020-07-11 21:32:00 Mem orial Almo Heart Rate 2020-07-11 21:32:00 [facility] Ismael Height 2020-07-11 21:32:00 149.86 cm Memorial Almo Weight 2020-07-11 21:32:00 [facility] Ismael BMI Calculated 2020-07-11 21:32:00 Memori al Almo Systolic (mm Hg) 2020-06-15 21:09:00 Thong rial Almo Diastolic (mm Hg) 2020-06-15 21:09:00 Mem orial Almo Heart Rate 2020-06-15 21:09:00 Memorial Almo Height 2020-06-15 21:09:00 149.86 cm Memorial Ismael Weight 2020-06-15 21:09:00 [facility] Ismael BMI Calculated 2020-06-15 21:09:00 Memori al Ismael Systolic (mm Hg) 2020-06-13 21:30:00 Thong rial Ismael Diastolic (mm Hg) 2020-06-13 21:30:00 Mem orial Ismael Height 2020-06-13 21:30:00 149.86 cm Memorial Almo Weight 2020-06-13 21:30:00 [facility] Ismael BMI Calculated 2020-06-13 21:30:00 Memori al Almo Systolic (mm Hg) 2020-03-14 20:40:00 Thong rial Almo Diastolic (mm Hg) 2020-03-14 20:40:00 Mem orial Ismael Heart Rate 2020-03-14 20:40:00 Memorial Almo Height 2020-03-14 20:40:00 149.86 cm Memorial Ismael Weight 2020-03-14 20:40:00 [facility] Ismael BMI Calculated 2020-03-14 20:40:00 Memori al Ismael Respitory Rate 2018-03-17 16:45:00 Memori al Ismael Systolic (mm Hg) 2018-03-17 16:45:00 Thong rial Almo Diastolic (mm Hg) 2018-03-17 16:45:00 Mem orial Almo Respitory Rate 2018-03-17 16:15:00 Memori al Almo Systolic (mm Hg) 2018-03-17 16:15:00 Thong rial Ismael Diastolic (mm Hg) 2018-03-17 16:15:00 Mem orial Ismael Respitory Rate 2018-03-17 16:00:00 Memori al Almo Systolic (mm Hg) 2018-03-17 16:00:00 Thong rial Almo Diastolic (mm Hg) 2018-03-17 16:00:00 Mem orial Ismael Temperature Oral (F) 2018-03-17 12:00:00 98.5 F Memorial Almo Heart Rate 2018-03-13 21:33:00 [facility] Ismael BMI Calculated 2018-03-13 21:26:00 Memori al Almo Weight 2018-03-13 21:26:00 [facility] Ismael Height 2018-03-13 21:26:00 149.86 cm Memorial Ismael Systolic (mm Hg) 2015-05-12 14:45:00 Thong rial Almo Respitory Rate 2015-05-12 14:45:00 Memori al Ismael Systolic (mm Hg) 2015-05-12 14:20:00 Thong rial Ismael Respitory Rate 2015-05-12 14:20:00 Memori al Ismael Heart Rate 2015-05-12 14:20:00 [facility] Ismael Heart Rate 2015-05-12 14:10:00 [facility] Ismael Respitory Rate 2015-05-12 14:10:00 Memori al Ismael Systolic (mm Hg) 2015-05-12 14:10:00 Thong rial Ismael Temperature Oral (F) 2015-05-12 14:00:00 36.6 [facility] Almo Heart Rate 2015-05-12 14:00:00 [facility] Ismael Height 2015-05-12 13:33:00 149.86 cm Memorial Almo Weight 2015-05-12 13:33:00 [facility] Almo Temperature Oral (F) 2015-05-12 13:33:00 37 [facility] Ismael Height 2015-05-11 17:57:00 149 cm [facility] Ismael Weight 2015-05-11 17:57:00 [facility] Almo Procedures Procedure Date / Time Performing Source Performed Clinician COLONOSCOPY FLEXIBLE; DIAGNOSTIC; 2015-05-12 Jose Luis Gomez [facility] Almo INCL. COLLECTION OF SPECIMENS 13:49:00 [id number] (Other)<sup>1</sup> ESOPHAGOGASTRODUODENOSCOPY; 2015-05-12 Jose Luis Gomez FLEXIBLE DIAGNOSTIC [id number] 13:49:00 (Other)<sup>2</sup> Esophagogastroduodenoscopy 2014-05-09 Violette Guevara 06:00:00 section<sup>1</sup> Mem kvng Guevara Encounters Start End Encounter Admission Attending Care Care Encounter Source Date/Time Date/Time Type Type Clinicians Facility Department ID 2020-07-11 2020-07-12 Outpatient nullFlavo [facility] [id number] Memoria 21:30:00 05:59:59 r Primary 04 l [facility] 2020-07-08 2020-07-08 Laboratory Lab, [facility] Fam Pob I [email or web address]] 1.2. 840.114 [id number] Univers 12:58:17 13:18:17 Only [facility] [id number] ity [facility] [id number] Aleksandar as Professio [phone] Il dical [address] Office [address] 2020-07-08 2020-07-08 Laboratory Lab, [facility] 1.2.840.114 [id number] 12:58:17 13:18:17 Only Fam Pob I Health [id number] [place] [id number] Professio [phone] [address] 2020-07-08 2020-07-08 Outpatient R [facility] [id number] Univers 13:00:00 13:00:00 [id number] [facility] 2020-07-08 2020-07-08 Outpatient R DANGELO [facility] [id number] Univers 13:00:00 13:00:00 [facility] 2020-07-05 2020-07-05 Outpatient R [facility] [id number] Univers 11:40:00 11:40:00 [id number] [facility] 2020-06-26 2020-06-27 Outpatient nullFlavo [facility] [id number] Memoria 22:00:00 05:59:59 r Primary 05 l [facility] 2020-06-24 2020-06-24 Laboratory Lab, [facility] Fam Pob I [facility] [[email or web address]] 1.2. 840.114 [id number] Univers 17:36:34 17:56:34 Only Tisha Schmitt [id number] ity [facility] [id number] Aleksandar as Professio [phone] Me dical [address] 2020-06-24 2020-06-24 Laboratory Lab, [facility] 1.2.840.114 [id number] 17:36:34 17:56:34 Only Fam Pob I Health [id number] [place] [id number] Professio [phone] [place] [address] [address] 2020-06-24 2020-06-24 Outpatient R [facility] [id number] Univers 17:40:00 17:40:00 [facility] 2020-06-24 2020-06-24 Outpatient R [facility] [id number] Univers 13:40:00 13:40:00 [id number] [facility] 2020-06-16 2020-06-[address] [facility] [id number] Memoria 11:15:00 11:15:00 02 [facility] 2020-06-15 2020-06-16 Outpatient nullFlavo [facility] [id number] Memoria 21:00:00 05:59:59 r Primary 03 l [facility] 2020-06-13 2020-06-14 Between nullFlavo [facility] [id number] Memoria 19:54:38 19:54:38 Visit r Primary 00 l [facility] 2020-06-13 2020-06-14 Outpatient nullFlavo [facility] [id number] Memoria 21:00:00 05:59:59 r Primary 01 l [facility] 2020-04-18 2020-04-19 Outpt Diag nullFlavo [facility] [id number] Memoria 14:33:00 05:59:00 Services r Outpatient 00 l Imaging [facility] 2020-03-14 2020-03-15 Outpatient nullFlavo [facility] [id number] Memoria 20:30:00 05:59:59 r Primary 00 l [facility] 2018-03-17 2018-03-17 Day nullFlavo [facility] [id number] Memoria 11:18:00 18:05:00 Surgery r Almo 01 l [facility] 2016-09-27 2016-09-28 Outpt Diag nullFlavo [facility] [id number] Memoria 19:34:00 04:59:00 Services r Outpatient 00 l Imaging Almo [place] 2015-05-12 2015-05-12 Outpatient nullFlavo [facility] [id number] Memoria 06:35:49 08:45:00 r l Almo 2015-05-10 2015-05-11 Outpatient nullFlavo [facility] [id number] Memoria 13:35:00 05:59:00 r Almo 00 l [place] Yi nn Results Test Description Test Time Test Comments Results Result Comments Source CHEM PANEL 2020-07-11 80 Memorial Yi nn [...] code = MCH) 28.1 pg 27.0-33.0 Memorial DxeaeceZIMBNKLIBP6422-74-84 22:24:0032.6[facility] HermannHEMATOLOGY 2020-07-11 22:24:0012.9[facility] YjscslyGYCBJTYZAS6080-51-49 22:24:34561Iczsoxhx EbxtaqrNLFTWDSQXR5627-27-55 22:24:0010.0[facility]orial NsalsgpUOQHIUZUEP8124-13-25 22:24:385195Hzcutjri UpbygjpAREOSTHODF7436-92-03 22:24:363676Famyuvky Ismael KSZVOXKLNT5769-91-05 22:24:41040Kxhmyomi FlqqvimBPHTKSRBIV3018-72-75 22:24:0052 Memorial VfwdladXRMNJJIWUA2537-31-28 22:24:0029[facility] HermannHEMATOLOGY 2020-07-11 22:24:0057.2[facility] OveldkrKGBQNMWFTW4140-06-32 22:24:0030.1[facility] XoaftxdBOTRTFEIRZ8794-56-83 22:24:0011.3[facility] FitqnrhXXWBOJUZGO6426-54-01 22:24:000.9[facility] CmynuiyLZNNNIERYN4012-69-85 22:24:000.5[facility] Almo ZOLAWA7717-35-14 22:24:96622Vejvmojl JykchfgZEOGZF9592-44-83 22:24:0058[facility] ZzzptpaSAMIPB9897-30-27 22:24:48604Qnxthyje NlcmmeaMJUMEY5663-30-90 22:24:02874 Memorial IxrbjskPQSVGP0419-37-23 22:24:003.2[facility] EozweqsKGZPDM3312-78-33 22:24:72396Tefccsve HermannSPECIAL IGDSAHMCU7382-56-40 22:24:005.4[facility]orial DqzflzdMMXCUUFUER5371-70-78 21:14:93111.80[facility] HermannUS THYROID ULTRASOUND 2020-02-11 14:31:43CLINICAL INDICATION: E04.9 Nontoxic goiter, unspecifiedTECHNIQUE: Real time and doppler imaging of the thyroid is performed using a high frequency probe on the [employer] .Comparison S tudy: noneFINDINGS:Right lobe: 4.0 x 1.6 x 1.4 cm.Left lobe: 4.0 x 1.6 x 1.7 cm.Isthmus: 6.1 mm.Comments: Echotexture is homogeneous without evidence of a focal nodule.IMPRESSION:Normal thyroid ultrasound.XIMVFMOHZR7615-26-66 21:33:00 4.10[facility] ZautbgpTOXSWTWBWK3040-61-67 21:33:0034.0[facility] HermannHEMATOLOGY 2018-03-13 21:33:0011.0[facility] GnqcphgVUICCZTHAU4003-65-07 21:33:0017.3[facility] HrppqeuZXYHMBRBMM1826-32-37 21:33:83226Kmuqkyru PnkjydhMIOHRZLSIQ1108-00-81 21:33:007.7[facility]orial PhiqufqRFEFJAKDFE8674-74-09 21:33:0082.8[facility] Ismael QVLHEZBMXB7075-91-12 21:33:0032.3[facility] LkrrwguCMIPUBXFOX3115-33-06 21:33:00 Test Item Value Reference Range Interpretation Comments MCH (test code = MCH) 26.7 pg 27.0-31.0 Memorial WchfjaqVCSGUQBHBD5810-20-91 21:33:006.9[facility] HermannCHEM PANEL 2018-03-13 21:33:0095[facility] YtrbrpkXRNOCNPXEYENZ0529-49-95 21:33:00Negative *NA*(03/13/18 3:33 PM)[facility] OivbcaqMERKVZXPCL4167-19-16 21:33:000.0[facility] UvjymlxCKKMYMFUFY5078-11-71 21:33:001.9[facility] TlnqgcdTADAPBXFGR0930-81-06 21:33:004.4[facility] TrtupcwNSBEMCNNUU6603-24-34 21:33:000.5[facility] Almo WCKECBXYWH4166-92-14 21:33:000.0[facility] ChjwmikHPLIIGWUNT9366-95-95 21:33:000.5 Memorial BxpzhbaGCTVZBLZGT7805-05-93 21:33:006.7[facility] HermannHEMATOLOGY 2018-03-13 21:33:0027.9[facility] DgxhlevAFYNGRFMNP8038-96-78 21:33:0064.4[facility] KufofecDZDUPDOWNK6106-36-23 21:33:000.5[facility] EalupmtBCADGNMCKV9560-13-38 13:37:00Negative, Control Present (05/12/2015 07:37:00)[facility]
[2021-04-11 10:13] LABS: Absolute Lymphocytes (CBC) 0.3 K/uL (0.7-4.9); Basophils % 0.3 % (0-1.3); Hematocrit 41.7 % (36.0-45.0); Lymphocytes % 2.9 % (15.3-44.8); MPV 7.6 fL (7.6-11.3); RBC Red Blood Cell Count 4.75 M/uL (3.86-4.86)
[2021-04-11 10:29] LABS: Albumin 3.7 g/dL (3.4-5.0); Bilirubin Direct 0.1 mg/dL (0-0.2); Bilirubin Total 0.5 mg/dL (0.2-1.0); Potassium 3.7 mmol/L (3.5-5.1); Protein, Total 8.6 g/dL (6.4-8.2)
[2021-04-11] MEDS ORDERED: ONDANSETRON 4 MG/2 ML VIAL ONE (10:36)
[2021-04-11] MEDS ORDERED: NA CHLORIDE 0.9% 1,000 ML ONE (10:36)
[2021-04-11 11:10] LABS: Urine Blood Negative (Negative); Urine Glucose Negative (Negative); Urine Protein Trace (Negative); Urine Specific Gravity >=1.030 (1.005-1.030); Urine pH 5.5 (5.0-7.0)
[2021-04-11] MEDS ORDERED: DICYCLOMINE HCL 10 MG CAP ONE (11:39)
[2021-04-11 12:11] LABS: Blood Morphology Comment NOT SEEN (NOT SEEN); Platelet Estimate ADEQ; White Blood Cell Scan OK (OK)
[2021-04-11 12:22] LABS: Urine Specific Gravity/Preg >1.030 (1.005-1.030)
--- NOTE | 2021-04-11 12:28 | RAD REPORT ---
EXAM DESCRIPTION: CTAbdomen Pelvis W Contrast - 04/11/2021 11:59 am CLINICAL HISTORY: ABD PAIN COMPARISON: No comparisons TECHNIQUE: CT of the abdomen and pelvis was performed. All CT scans are performed using dose optimization technique as appropriate and may include automated exposure control or mA/KV adjustment according to patient size. FINDINGS: Lower chest: No acute abnormality. Liver: No acute abnormality or suspicious lesions. Biliary: Cholecystectomy . Stomach: No significant focal abnormality. Duodenum: No significant focal abnormality. Pancreas: No significant abnormality. Spleen: No significant abnormality. Adrenal: No suspicious lesions. Kidney/ureter: No hydronephrosis. No renal calculi. Retroperitoneum: No retroperitoneal adenopathy. Vascular: No aneurysm. Bowel: There is fluid within the colon. Normal appendix. No bowel obstruction.. Peritoneum: No ascites or free air. Small fat containing umbilical hernia. Bladder: Grossly unremarkable. Reproductive: No adnexal masses. Bones: No acute fracture. Other: n/a IMPRESSION: No acute intra-abdominal or pelvic finding. Normal appendix.
--- NOTE | 2021-04-11 13:45 | EDPHYS ---
Physician Documentation [facility] Name: Maggie Bowles Age: 25 yrs Sex: Female : 1995 Arrival Date: 04/11/2021 Time: 09:31 Bed 12 Private MD: ED Physician Octavio Saeed HPI: 04/11 16:12 This 25 yrs old Female presents to ER via Ambulatory with complaints of kb Abdominal Pain, Vomiting/Diarrhea. 16:14 The patient presents to the emergency department with nausea, vomiting, diarrhea, kb abdominal pain. Onset: The symptoms/episode began/occurred last night. Possible causes: unknown. The symptoms are aggravated by nothing. The symptoms are alleviated by nothing. Associated signs and symptoms: Pertinent positives: abdominal pain, diarrhea, nausea, vomiting, Pertinent negatives: fever. Severity of symptoms: At their worst the symptoms were moderate in the emergency department the symptoms are unchanged. The patient has not experienced similar symptoms in the past. The patient has not recently seen a physician. 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 - Social history:: Smoking status: Patient denies any tobacco usage or history of. ROS: 16:13 Constitutional: Negative for fever, chills, and weight loss. kb 16:13 Abdomen/GI: Positive for abdominal pain, nausea, vomiting, and diarrhea. 16:13 All other systems are negative. Exam: 16:13 Constitutional: This is a well developed, well nourished patient who is awake, alert, kb and in no acute distress. Head/Face: Normocephalic, atraumatic. ENT: Moist Mucous membranes Cardiovascular: Regular rate and rhythm with a normal S1 and S2. No gallops, murmurs, or rubs. No pulse deficits. Respiratory: Respirations even and unlabored. No increased work of breathing. Talking in full sentences Skin: Warm, dry with normal turgor. Normal color. MS/ Extremity: Pulses equal, no cyanosis. Neurovascular intact. Full, normal range of motion. Neuro: Awake and alert, GCS 15, oriented to person, place, time, and situation. Moves all extremities. Normal gait. Psych: Awake, alert, with orientation to person, place and time. Behavior, mood, and affect are within normal limits. 16:13 Abdomen/GI: Inspection: abdomen appears normal, Bowel sounds: normal, in all quadrants, Palpation: soft, in all quadrants, mild abdominal tenderness, in the right upper quadrant and left upper quadrant. Vital Signs: 10:41 BP 133 / 74; Pulse 124; Resp 16; Temp 97.8(O); Pulse Ox 97% on R/A; iw 12:14 BP 100 / 64; Pulse 120; Resp 18; Temp 98.5(O); Pulse Ox 99% on R/A; ld1 13:25 BP 118 / 66; Pulse 111; Resp 18; Pulse Ox 100% on R/A; ld1 MDM: 09:42 Patient medically screened. kb 16:13 Data reviewed: vital signs, nurses notes. Data interpreted: Pulse oximetry: on room air kb is 100 %. Interpretation: normal. Counseling: I had a detailed discussion with the patient and/or guardian regarding: the historical points, exam findings, and any diagnostic results supporting the discharge/admit diagnosis, lab results, radiology results, the need for outpatient follow up, a family practitioner, to return to the emergency department if symptoms worsen or persist or if there are any questions or concerns that arise at home. 12 09:59 Order name: Basic Metabolic Panel; Complete Time: 10:35 kb 04/11 09:59 Order name: CBC with Diff; Complete Time: 12:14 kb 04/11 09:59 Order name: Hepatic Function; Complete Time: 10:35 kb 12 09:59 Order name: Lipase; Complete Time: 10:35 kb 04/11 10:17 Order name: CBC Smear Scan; Complete Time: 12:14 EDMS 04/11 11:10 Order name: Urine --Ancillary (enter results); Complete Time: 12:24 bd 12 09:59 Order name: IV Saline Lock; Complete Time: 10:40 kb 04/11 09:59 Order name: Labs collected and sent; Complete Time: 10:40 kb 04/11 10:36 Order name: CT Abd/Pelvis - IV Contrast Only; Complete Time: 12:29 kb 04/11 11:10 Order name: Urine Dipstick-Ancillary; Complete Time: 11:11 EDMS Administered Medications: 10:40 Drug: NS 0.9% 1000 ml Route: IV; Rate: 1000 ml; Site: right antecubital; iw 12:40 Follow up: IV Status: Completed infusion iw 10:40 Drug: Zofran (Ondansetron) 4 mg Route: IVP; Site: right antecubital; iw 11:00 Follow up: Response: No adverse reaction iw 11:43 Drug: Bentyl (dicyclomine) 20 mg Route: PO; iw 13:00 Follow up: Response: No adverse reaction iw 14:04 Drug: Phenergan (promethazine) 12.5 mg Route: IVP; Site: right antecubital; ld1 14:04 Follow up: Response: No adverse reaction ld1 Disposition: 22:31 Co-signature as Attending Physician, Octavio Saeed MD I agree with the assessment and sp3 plan of care. Disposition Summary: 04/11/21 13:44 Discharge Ordered Location: Home kb Condition: Stable kb Diagnosis - Nausea with vomiting, unspecified kb Followup: kb - With: Emergency Department - When: As needed - Reason: Worsening of condition Followup: kb - With: Private Physician - When: 2 - 3 days - Reason: Recheck today's complaints, Continuance of care, Re-evaluation by your physician Discharge Instructions: - Discharge Summary Sheet kb - Nausea and Vomiting, Adult, [id number] kb Forms: - Medication Reconciliation Form kb - Thank You Letter kb - Antibiotic Education kb - Prescription Opioid Use kb Prescriptions: - dicyclomine 20 mg Oral Tablet - take 1 tablet by ORAL route 4 times per day As needed; 20 tablet; Refills: 0, kb Product Selection Permitted Signatures: Dispatcher [employer] EDMS Minnie Black FNP-C FNP-Rossana Valdovinos RN RN iw Andree Ovalle RN RN ld1 Octavio Saeed MD MD sp3 Emily Felix RN RN jh5 Corrections: (The following items were deleted from the chart) 16:14 16:13 Abdomen/GI: Positive for nausea, vomiting, and diarrhea, abdominal cramps, kb kb
--- NOTE | 2021-04-11 13:45 | ER ---
Nurse's Notes [facility] Name: Maggie Bowles Age: 25 yrs Sex: Female : 1995 Arrival Date: 04/11/2021 Time: 09:31 Bed 12 Private MD: Diagnosis: Nausea with vomiting, unspecified Presentation: 04/11 09:57 Chief complaint: Patient states: throwing up since midnight with diarrhea also. Upper jh5 abdominal pain. Coronavirus screen: Vaccine status: Patient reports receiving the 2nd dose of the covid vaccine. Client denies travel out of the [place] in the last 14 days. Ebola Screen: Patient negative for fever greater than or equal to 101.5 degrees Fahrenheit, and additional compatible Ebola Virus Disease symptoms Patient denies exposure to infectious person. Patient denies travel to an Ebola-affected area in the 21 days before illness onset. No symptoms or risks identified at this time. Initial Sepsis Screen: Does the patient meet any 2 criteria? No. Patient's initial sepsis screen is negative. Risk Assessment: Do you want to hurt yourself or someone else? Patient reports no desire to harm self or others. Onset of symptoms was April 11, 2021. 09:57 Method Of Arrival: Ambulatory [facility] 09:57 Acuity: VENKATA 3 5 14:04 Initial Sepsis Screen: Does the patient have a suspected source of infection?. 1 Triage Assessment: 09:58 General: Appears uncomfortable, Behavior is calm, cooperative, appropriate for age. jh5 Pain: Complains of pain in abdomen. GI: Abdomen is round non-distended, Abdomen is tender to palpation in epigastric area. 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 - Social history:: Smoking status: Patient denies any tobacco usage or history of. Screenin:53 Abuse screen: Denies threats or abuse. Denies injuries from another. Nutritional iw screening: No deficits noted. Tuberculosis screening: No symptoms or risk factors identified. Fall Risk IV access (20 points). Assessment: 10:52 General: Appears in no apparent distress. Behavior is calm, cooperative. Neuro: Level iw of Consciousness is awake, alert, obeys commands, Oriented to person, place, time, situation, Moves all extremities. Full function. GI: Abdomen is non-distended, obese, Bowel sounds present in right upper quadrant, left upper quadrant, right lower quadrant and left lower quadrant Reports nausea. GI: Abd is soft X 4 quads. Derm: Skin is intact, is healthy with good turgor. Musculoskeletal: Range of motion: intact in all extremities. 12:14 Reassessment: Patient appears in no apparent distress at this time. No changes from ld1 previously documented assessment. Patient and/or family updated on plan of care and expected duration. Pain level reassessed. Patient is alert, oriented x 3, equal unlabored respirations, skin warm/dry/pink. Vital Signs: 10:41 BP 133 / 74; Pulse 124; Resp 16; Temp 97.8(O); Pulse Ox 97% on R/A; iw 12:14 BP 100 / 64; Pulse 120; Resp 18; Temp 98.5(O); Pulse Ox 99% on R/A; ld1 13:25 BP 118 / 66; Pulse 111; Resp 18; Pulse Ox 100% on R/A; ld1 ED Course: 09:31 Patient arrived in ED. ds1 09:37 Minnie Black [facility]-C [facility] kb 09:37 Octavio Saeed MD is Attending Physician. kb 09:58 Triage completed. jh5 10:13 Inserted saline lock: 20 gauge in right antecubital area, using aseptic technique. tp1 Blood collected. 10:13 Basic Metabolic Panel Sent. tp1 10:13 CBC with Diff Sent. tp1 10:13 Hepatic Function Sent. tp1 10:13 Lipase Sent. tp1 10:32 Rossana Leal, RN is Primary Nurse. iw 10:53 Patient has correct armband on for positive identification. iw 11:15 CBC with Diff Sent. mh5 11:15 CBC Smear Scan Sent. 5 12:00 CT Abd/Pelvis - IV Contrast Only In Process Unspecified. EDMS 12:55 Primary Nurse role handed off by Rossana Leal, RN ld1 12:55 Andree Ovalle, RN is Primary Nurse. ld1 14:04 No provider procedures requiring assistance completed. IV discontinued, intact, ld1 bleeding controlled, No redness/swelling at site. 14:05 Arm band placed on right wrist. ld1 Administered Medications: 10:40 Drug: NS 0.9% 1000 ml Route: IV; Rate: 1000 ml; Site: right antecubital; iw 12:40 Follow up: IV Status: Completed infusion iw 10:40 Drug: Zofran (Ondansetron) 4 mg Route: IVP; Site: right antecubital; iw 11:00 Follow up: Response: No adverse reaction iw 11:43 Drug: Bentyl (dicyclomine) 20 mg Route: PO; iw 13:00 Follow up: Response: No adverse reaction iw 14:04 Drug: Phenergan (promethazine) 12.5 mg Route: IVP; Site: right antecubital; ld1 14:04 Follow up: Response: No adverse reaction ld1 Outcome: 13:44 Discharge ordered by . kb 14:05 Discharged to home ambulatory, with family. ld1 14:05 Condition: stable 14:05 Discharge instructions given to patient, family, Instructed on discharge instructions, follow up and referral plans. medication usage, Demonstrated understanding of instructions, follow-up care, medications, Prescriptions given X 1. 14:05 Patient left the ED. ld1 Signatures: Dispatcher [employer] EDMS Minnie Black, NITROGLYCERIN DISTRIBUTOR-C NITROGLYCERIN DISTRIBUTOR-Radha Koo ds1 Rossana Leal RN RN Miriam Bowles [facility] Andree Ovalle RN RN ld1 Emily Felix RN RN 5 Maribell Reynoso tp1 Corrections: (The following items were deleted from the chart) 11:43 10:41 BP 133 / 74; Pulse 124bpm; Resp 16bpm; Pulse Ox 97% RA; iw iw
[2021-04-11] MEDS ORDERED: PROMETHAZINE INJ 25 MG/ML AMP ONE (13:59)
[2021-04-11 14:23] VITALS: TEMP 98.5
[2021-04-11 14:25] VITALS: BP 118/66; O2SAT 100
== END 2021-04-11 14:05 | disposition home or self-care (01) ==
LOC: ER 09:27
DX: R11.2 Nausea with vomiting, unspecified (principal); Z88.0 Allergy status to penicillin; Z88.1 Allergy status to other antibiotic agents
CPT/HCPCS: 96361; 85025; 80048; 36415; 81025; 80076; 81003; 83690; 74177; 96375; 96374; 99284; Q9967; J2550; J7030; J2405